=== PATIENT | female | born 1980 | race Caucasian/White ===

== ENCOUNTER 2019-08-15 08:08 | Inpatient (IN) | payer OTHER ==
[2019-08-15] MEDS ORDERED: ONDANSETRON 4 MG/2 ML VIAL IVP STA (08:26)
[2019-08-15] MEDS ORDERED: HYDROmorphone 0.5 MG/0.5 ML SYRINGE IVP STA (08:26)
[2019-08-15] MEDS ORDERED: SODIUM CHLORIDE 0.9% 1,000 ML IV ONE (08:26)
[2019-08-15 09:19] LABS: Basophils % (A) 0 %; Eosinophils # (A) 0.1 k/uL (0-0.7); Eosinophils % (A) 1 %; HCT 44.3 % (34.0-46.0); HGB 14.2 gm/dL (11.4-16.0); Lymphocytes # (A) 1.1 k/uL (1.0-4.8); Lymphocytes % (A) 12 %; MCV 87.5 fL (80.0-100.0); Mean Platelet Volume 7.2; Monocytes # (A) 0.5 k/uL (0-1.0); Monocytes % (A) 6 %; Neutrophils % (A) 79 %; Platelet Count 324 k/uL (150-450); RBC 5.06 m/uL (3.80-5.40); RDW 13.2 % (11.5-15.5); WBC 8.9 k/uL (3.8-10.6)
[2019-08-15 09:22] LABS: ALT 11 U/L (4-34); AST 23 U/L (14-36); African American GFR (CKD) >90 (>60 ml/min/1.73 sqM); Albumin 4.7 g/dL (3.5-5.0); Alkaline Phosphatase 78 U/L (38-126); Anion Gap 12 mmol/L; Blood Urea Nitrogen 11 mg/dL (7-17); Calcium 9.4 mg/dL (8.4-10.2); Carbon Dioxide 22 mmol/L (22-30); Chloride 105 mmol/L (98-107); Glucose 125 mg/dL (74-99); Non-African American GFR(CKD) >90 (>60 ml/min/1.73 sqM); Potassium 4.1 mmol/L (3.5-5.1); Sodium 139 mmol/L (137-145); Total Bilirubin 0.4 mg/dL (0.2-1.3); Total Protein 8.1 g/dL (6.3-8.2)
--- NOTE | 2019-08-15 09:23 | CT ---
EXAMINATION TYPE: CT orbits w con DATE OF EXAM: 08/15/2019 REFERENCE: None. HISTORY: Left periorbital swelling, left ocular pain HISTORY: Periorbital swelling REFERENCE: NONE CT DLP: 222 mGy Automated exposure control for dose reduction was used. TECHNIQUE: Helical acquisition through the abdomen and pelvis was obtained following the oral ingesti on of and following intravenous administration of 100 ml mL of Isovue 300. The data was reformatted i n axial, coronal and sagittal projections. FINDINGS: There is left-sided facial and periorbital swelling. The globes appear unremarkable. There is no intraconal or extraconal mass lesion. Visualized intracra nial structures appear normal. Visualized portions of the paranasal sinuses appear clear. The orbital margins are intact. IMPRESSION: DIFFUSE SOFT TISSUE SWELLING INVOLVING THE FOR HEAD AND LEFT PERIORBITAL REGION WITHOUT INVOLVEMENT O F THE ORBIT.
[2019-08-15] MEDS ORDERED: VANCOMYCIN IV PER PHARMACY 1 EACH MISC MISCELLANE PRN (09:42)
[2019-08-15] MEDS ORDERED: AMPICILLIN-SULBACTAM 3 GM in SODIUM CHLORIDE 0.9% 100 ML IVPB STA (09:50)
[2019-08-15] MEDS ORDERED: VANCOMYCIN 1,000 MG in SODIUM CHLORIDE 0.9% 250 ML IVPB STA (09:51)
--- NOTE | 2019-08-15 10:04 | ED ---
Skin/Abscess/FB HPI - General Chief complaint: Skin/Abscess/Foreign Body Stated complaint: Facial Swelling Time Seen by Provider: 08/15/19 08:16 Source: patient, RN notes reviewed Mode of arrival: ambulatory Limitations: no limitations - History of Present Illness Initial comments: 39-year-old female presents emergency Department with chief complaint of swelling to her left periorbital, forward region. Patient states that she popped a pimple on for Friday states and use her swelling started on antibiotics next day by PCP. Patient active.she also admits that she had Botox injections that night. Patient states she is unsure what this is from. Patient states that she was seen at [facility] last night was placed on Keflex. Patient states he attempted to do an aspiration. - Related Data Allergies Allergy/AdvReac Type Severity Reaction Status Date / Time ketorolac [From Toradol] AdvReac Swelling Verified 08/15/19 08:15 Review of Systems ROS Statement: Those systems with pertinent positive or pertinent negative responses have been documented in the HPI. ROS Other: All systems not noted in ROS Statement are negative. Past Medical History Additional Past Medical History / Comment(s): hypoglycemia, orthostatic hypotension History of Any Multi-Drug Resistant Organisms: None Reported Past Surgical History: Orthopedic Surgery, Tonsillectomy Past Psychological History: No Psychological Hx Reported Smoking Status: Never smoker Past Alcohol Use History: Occasional Past Drug Use History: None Reported General Exam Limitations: no limitations General appearance: alert, in no apparent distress Head exam: Present: atraumatic, normocephalic, normal inspection Eye exam: Present: PERRL, EOMI, periorbital swelling, periorbital tenderness, other (Swollen erythema noted on the forehead, periorbital region mild swelling on the right). Absent: normal appearance, scleral icterus, conjunctival injection ENT exam: Present: normal exam, normal oropharynx, mucous membranes moist Neck exam: Present: normal inspection. Absent: tenderness, meningismus, lympha denopathy Respiratory exam: Present: normal lung sounds bilaterally. Absent: respiratory distress, wheezes, rales, rhonchi, stridor Cardiovascular Exam: Present: regular rate, normal rhythm, normal heart sounds. Absent: systolic murmur, diastolic murmur, rubs, gallop, clicks Extremities exam: Present: normal inspection, full ROM, normal capillary refill. Absent: tenderness, pedal edema, joint swelling, calf tenderness Neurological exam: Present: alert, oriented X3, CN II-XII intact, reflexes normal. Absent: motor sensory deficit Course Vital Signs 08/15/19 08:10 Temperature 98.2 F Pulse Rate 75 Respiratory 16 Rate Blood Pressure 140/88 O2 Sat by Pulse 100 Oximetry Medical Decision Making - Medical Decision Making Labs and CT reviewed. Patient has evidence of diffuse cellulitis, edema. There is no evidence of orbital cellulitis. Patient has failed outpatient treatment will be started on Unasyn and vancomycin. - Lab Data Result diagrams: 08/15/19 08:47 08/15/19 08:47 Lab Results 08/15/19 08/15/19 08/15/19 Range/Units 08:47 08:47 08:47 WBC 8.9 (3.8-10.6) k/uL RBC 5.06 (3.80-5.40) m/uL Hgb 14.2 (11.4-16.0) gm/dL Hct 44.3 (34.0-46.0) % MCV 87.5 (80.0-100.0) fL MCH 28.0 (25.0-35.0) pg MCHC 32.0 (31.0-37.0) g/dL RDW 13.2 (11.5-15.5) % Plt Count 324 (150-450) k/uL Neutrophils % 79 % Lymphocytes % 12 % Monocytes % 6 % Eosinophils % 1 % Basophils % 0 % Neutrophils # 7.0 (1.3-7.7) k/uL Lymphocytes # 1.1 (1.0-4.8) k/uL Monocytes # 0.5 (0-1.0) k/uL Eosinophils # 0.1 (0-0.7) k/uL Basophils # 0.0 (0-0.2) k/uL Sodium 139 (137-145) mmol/L Potassium 4.1 (3.5-5.1) mmol/L Chloride 105 (98-107) mmol/L Carbon Dioxide 22 (22-30) mmol/L Anion Gap 12 mmol/L BUN 11 (7-17) mg/dL Creatinine 0.77 (0.52-1.04) mg/dL Est GFR (CKD-EPI)AfAm >90 (>60 ml/min/1.73 sqM) Est GFR (CKD-EPI)NonAf >90 (>60 ml/min/1.73 sqM) Glucose 125 H (74-99) mg/dL Plasma Lactic Acid Karson 1.9 (0.7-2.0) mmol/L Calcium 9.4 (8.4-10.2) mg/dL Total Bilirubin 0.4 (0.2-1.3) mg/dL AST 23 (14-36) U/L ALT 11 (4-34) U/L Alkaline Phosphatase 78 (38-126) U/L Total Protein 8.1 (6.3-8.2) g/dL Albumin 4.7 (3.5-5.0) g/dL Disposition Clinical Impression: Periorbital cellulitis, Facial cellulitis Disposition: ADMITTED IP TO THIS HOSP Condition: Fair Referrals: Darrell Hsu DO [Primary Care Provider] - 1-2 days
[2019-08-15] MEDS ORDERED: HYDROmorphone 1 MG/ML 1 ML SYRINGE IVP PRN (10:06)
[2019-08-15] MEDS ORDERED: NALOXONE 0.4 MG/ML 1 ML VIAL IV PRN (10:06)
[2019-08-15] MEDS ORDERED: MORPHINE SULFATE 4 MG/ML SYRINGE IVP PRN (15:07)
--- NOTE | 2019-08-15 15:53 | P.HPIM ---
History of Present Illness This is a pleasant 39 years old female with past medical history of orthostatic hypertension, she is a patient of Dr. Ramírez, presents with redness and swelling around her both eyes mainly on the left side. Patient states about 4 days ago she had a pimple at the corner of her left eyebrow, which she popped up, on the same day she got Subutex for cosmetic reasons for her for head and neck or the day she noticed slight swelling and redness and They the pimple came back so popped it again but the swelling and redness kept worsening, so she went to urgent care who prescribed Keflex and Bactrim after they did aspiration for her pimple, however yesterday and get more worse and she decided to come to the hospital She denies any blurred vision or diplopia, no nausea vomiting. No fever She denies smoking, alcohol or illicit drugs However she was taking Motrin 800 mg every 6 hours besides Tylenol and between Vitals are stable and patient is afebrile. Labs including CBC and BMP were unremarkable. She had CT of the head and orbit was showing diffuse soft tissue swelling involving the forehead and left periorbital region without involvement of the orbit In the emergency room patient was started on Unasyn and vancomycin. Review of Systems CONSTITUTIONAL: No fever, no malaise, no fatigue. HEENT: No recent visual problems or hearing problems. Denied any sore throat. CARDIOVASCULAR: No orthopnea, PND, no palpitations, no syncope. PULMONARY: No shortness of breath, no cough, no hemoptysis. GASTROINTESTINAL: No diarrhea, no nausea, no vomiting, no abdominal pain. Normoactive bowel sounds. NEUROLOGICAL: No headaches, no weakness, no numbness. HEMATOLOGICAL: Denies any bleeding or petechiae. GENITOURINARY: Denies any burning micturition, frequency, or urgency. MUSCULOSKELETAL/RHEUMATOLOGICAL: Denies any joint pain, swelling, or any muscle pain. ENDOCRINE: Denies any polyuria or polydipsia. Past Medical History Additional Past Medical History / Comment(s): hypoglycemia, orthostatic hypotension History of Any Multi-Drug Resistant Organisms: None Reported Past Surgical History: Orthopedic Surgery, Tonsillectomy Additional Past Anesthesia/Blood Transfusion Reaction / Comment(s): NEVER HAD Past Psychological History: No Psychological Hx Reported Smoking Status: Never smoker Past Alcohol Use History: Occasional Past Drug Use History: None Reported - Past Family History Father History Unknown: Yes Family Medical History: Diabetes Mellitus, Hypertension Mother History Unknown: Yes Family Medical History: Cancer Medications and Allergies Home Medications Medication Instructions Recorded Confirmed Type Cetirizine HCl [Zyrtec] 10 mg PO DAILY 08/15/19 08/15/19 History Etonogestrel [Nexplanon] 1 implant SQ [id number] 08/15/19 08/15/19 History Sulfamethox-Tmp 800-160Mg [Bactrim 1 tab PO BID 08/15/19 08/15/19 History DS 800-160 mg] Venlafaxine HCl [Effexor XR] 150 mg PO DAILY@1100 08/15/19 08/15/19 History Allergies Allergy/AdvReac Type Severity Reaction Status Date / Time ketorolac [From Toradol] AdvReac Swelling Verified 08/15/19 12:37 Physical Exam Vitals: Vital Signs Temp Pulse Pulse Resp BP BP Pulse Ox 08/15/19 12:08 98.4 F 74 18 136/87 08/15/19 10:47 82 18 139/90 98 08/15/19 08:10 98.2 F 75 16 140/88 100 Intake and Output 08/14/19 08/15/19 08/15/19 22:59 06:59 14:59 Other: Voiding Method Toilet # Voids 1 Weight 52.163 kg GENERAL: The patient is alert and oriented x3, not in any acute distress. Well developed, well nourished. HEENT: Pupils are round and equally reacting to light. EOMI. No scleral icterus. No conjunctival pallor. Normocephalic, atraumatic. No pharyngeal erythema. No thyromegaly. -Patient has swelling redness around her left eye with swollen left eyelids, swelling and draped for head and the lesser degree around her right eye, there is a small yellowish scab on the medial corner of the left eyebrow. No strabismus, no blurred vision CARDIOVASCULAR: S1 and S2 present. No murmurs, rubs, or gallops. PULMONARY: Chest is clear to auscultation, no wheezing or crackles. ABDOMEN: Soft, nontender, nondistended, normoactive bowel sounds. No palpable organomegaly. MUSCULOSKELETAL: No joint swelling or deformity. EXTREMITIES: No cyanosis, clubbing, or pedal edema. NEUROLOGICAL: Gross neurological examination did not reveal any focal deficits. SKIN: No rashes. No petechiae Results CBC & Chem 7: 08/15/19 08:47 08/15/19 08:47 Labs: Abnormal Lab Results - Last 24 Hours (Table) 08/15/19 Range/Units 08:47 Glucose 125 H (74-99) mg/dL Thrombosis Risk Factor Assmnt - Choose All That Apply Any of the Below Risk Factors Present?: Yes Each Factor Represents 1 point: Oral contraceptives or hormone replacement therapy Other Risk Factors: No Other congenital or acquired thrombophilia - If yes, enter type in comment: No Thrombosis Risk Factor Assessment Total Risk Factor Score: 1 Thrombosis Risk Factor Assessment Level: Low Risk Assessment and Plan Assessment: Pre-septal cellulitis Forehead and facial cellulitis Plan: This is a pleasant 59 years old female who presents with preseptal cellulitis, patient was started on Unasyn and vancomycin and emergency room, we'll continue with his antibiotics and we'll ask for infectious disease consult. Continue with gentle hydration. Pain management Labs and medication were reviewed.. Continue same treatment. Continue with symptomatic treatment. Resume home medication. Monitor lytes and vitals. DVT and GI prophylaxis. Further recommendations of the clinical course of the patient DVT prophylaxis: Subcutaneous heparin GI Prophylaxis: Pepcid Prognosis is guarded
[2019-08-15] MEDS: ONDANSETRON 4 MG/2 ML VIAL IVP PRN (16:13)
[2019-08-15] MEDS: HYDROmorphone 0.5 MG/0.5 ML SYRINGE IVP PRN ×3 (16:13→22:21)
[2019-08-15] MEDS: SODIUM CHLORIDE 0.9% 1,000 ML IV SCH (16:14)
[2019-08-15] MEDS: AMPICILLIN-SULBACTAM 3 GM in SODIUM CHLORIDE 0.9% 100 ML IVPB SCH (19:17)
[2019-08-15] MEDS: VANCOMYCIN 1,000 MG in SODIUM CHLORIDE 0.9% 250 ML IVPB SCH (20:15)
--- NOTE | 2019-08-16 01:02 | P.CONS ---
History of Present Illness - Reason for Consult Consult date: 08/15/19 facial cellulitis Requesting physician: Willian E Dallas - Chief Complaint left periorital pain and redness x 4 days - History of Present Illness Patient is a 39-year female who apparently has noticed a pimple on the left periorbital area last Friday that is about 4 days before presentation the hospital patient says she popped the pimple and subsequent noticed swelling and redness to the left periorbital area patient describing the pain to be throbbing almost 10 of 10 in severity did have some chills denies high-grade fever for the symptom she presented to the [facility] ER yesterday where the ER physician tried aspirated but did not get any cultures she was discharged home on oral Keflex however the patient did have worsening symptoms hence she presented to the [facility] ER on arrival to the ER patient did have a low-grade fever of 99.8 white count was normal as well as the kidney function patient did have a CT of the head and the orbits we did shows a left periorbital cellulitis without involvement of the orbit patient was started on Unasyn and vancomycin admitted to hospital infectious disease was consulted for further recommendation about antibiotic therapy. Review of Systems Positive point has been mentioned in HPI rest of the systems are negative Past Medical History Additional Past Medical History / Comment(s): hypoglycemia, orthostatic hypotension History of Any Multi-Drug Resistant Organisms: None Reported Past Surgical History: Orthopedic Surgery, Tonsillectomy Additional Past Anesthesia/Blood Transfusion Reaction / Comm: NEVER HAD Past Psychological History: No Psychological Hx Reported Smoking Status: Never smoker Past Alcohol Use History: Occasional Past Drug Use History: None Reported - Past Family History Father History Unknown: Yes Family Medical History: Diabetes Mellitus, Hypertension Mother History Unknown: Yes Family Medical History: Cancer Medications and Allergies Home Medications Medication Instructions Recorded Confirmed Type Cetirizine HCl [Zyrtec] 10 mg PO DAILY 08/15/19 08/15/19 History Etonogestrel [Nexplanon] 1 implant SQ [id number] 08/15/19 08/15/19 History Sulfamethox-Tmp 800-160Mg [Bactrim 1 tab PO BID 08/15/19 08/15/19 History DS 800-160 mg] Venlafaxine HCl [Effexor XR] 150 mg PO DAILY@1100 08/15/19 08/15/19 History Allergies Allergy/AdvReac Type Severity Reaction Status Date / Time ketorolac [From Toradol] AdvReac Swelling Verified 08/15/19 12:37 Physical Exam Vitals: Vital Signs Temp Pulse Pulse Resp BP BP Pulse Ox 08/15/19 12:08 98.4 F 74 18 136/87 08/15/19 10:47 82 18 139/90 98 08/15/19 08:10 98.2 F 75 16 140/88 100 Intake and Output 08/15/19 08/15/19 08/15/19 06:59 14:59 22:59 Other: Voiding Method Toilet # Voids 1 Weight 52.163 kg GENERAL DESCRIPTION: Middle-aged female lying in bed, no distress. No tachypnea or accessory muscle of respiration use. HEENT: Shows Pallor , no scleral icterus. Oral mucous membrane is dry. Left periorbital swelling redness and induration no drainage was noticed NECK: Trachea central, no thyromegaly. LUNGS: Unlabored breathing. Clear to auscultation anteriorly. No wheeze or crackle. HEART: S1, S2, regular rate and rhythm. ABDOMEN: Soft, no tenderness , guarding or rigidity EXTREMITIES: No edema of feet. SKIN: No rash, no masses palpable. NEUROLOGICAL: The patient is awake, alert, oriented x3, mood and affect normal. Results CBC & Chem 7: 08/15/19 08:47 08/15/19 08:47 Labs: Abnormal Lab Results - Last 24 Hours (Table) 08/15/19 Range/Units 08:47 Glucose 125 H (74-99) mg/dL Assessment and Plan Assessment: patient with left periorbital cellulitis that started as a pimple who the patient tried to pop likely pointing towards a possible staphylococcal infection with a question of MSSA versus community associated MRSA (1) Facial cellulitis Current Visit: Yes Status: Acute Code(s): L03.211 - CELLULITIS OF FACE SNOMED Code(s): 169136438 Plan: 1- RN has been advised to [place] the area of the redness and to obtain the cultures daily started to drain 2 vancomycin pharmacy to dose her with a target trough of 15 while watching her kidney function and Vanco trough closely.- We will follow on clinical condition and cultures to further adjust medication if needed Thank you for this consultation we will follow the patient along with you Time with Patient: Greater than 30
[2019-08-16] MEDS: ONDANSETRON 4 MG/2 ML VIAL IVP PRN ×2 (01:54→09:18)
[2019-08-16] MEDS: SODIUM CHLORIDE 0.9% 1,000 ML IV SCH ×2 (01:55→21:40)
[2019-08-16] MEDS: HYDROmorphone 0.5 MG/0.5 ML SYRINGE IVP PRN ×5 (01:55→21:40)
[2019-08-16] MEDS: AMPICILLIN-SULBACTAM 3 GM in SODIUM CHLORIDE 0.9% 100 ML IVPB SCH ×3 (03:51→19:51)
[2019-08-16] MEDS: VANCOMYCIN 1,000 MG in SODIUM CHLORIDE 0.9% 250 ML IVPB SCH ×2 (04:26→13:12)
[2019-08-16 07:45] LABS: African American GFR (CKD) >90 (>60 ml/min/1.73 sqM); Anion Gap 8 mmol/L; Blood Urea Nitrogen 6 mg/dL (7-17); Calcium 8.4 mg/dL (8.4-10.2); Carbon Dioxide 24 mmol/L (22-30); Chloride 105 mmol/L (98-107); Glucose 152 mg/dL (74-99); Non-African American GFR(CKD) >90 (>60 ml/min/1.73 sqM); Potassium 3.8 mmol/L (3.5-5.1); Sodium 137 mmol/L (137-145)
[2019-08-16] MEDS: FAMOTIDINE 20 MG/2 ML VIAL IV SCH ×2 (07:53→21:40)
[2019-08-16] MEDS: ENOXAPARIN 40 MG/0.4 ML SYRINGE SQ SCH (07:55)
[2019-08-16 08:51] LABS: C Reactive Protein 74.5 mg/L (<10.0)
--- NOTE | 2019-08-16 10:06 | P.PN ---
Subjective This is a pleasant 39 years old female with past medical history of orthostatic hypertension, she is a patient of Dr. Ramírez, presents with redness and swelling around her both eyes mainly on the left side. Patient states about 4 days ago she had a pimple at the corner of her left eyebrow, which she popped up, on the same day she got Subutex for cosmetic reasons for her for head and neck or the day she noticed slight swelling and redness and They the pimple came back so popped it again but the swelling and redness kept worsening, so she went to urgent care who prescribed Keflex and Bactrim after they did aspiration for her pimple, however yesterday and get more worse and she decided to come to the hospital She denies any blurred vision or diplopia, no nausea vomiting. No fever She denies smoking, alcohol or illicit drugs However she was taking Motrin 800 mg every 6 hours besides Tylenol and between Vitals are stable and patient is afebrile. Labs including CBC and BMP were unremarkable. She had CT of the head and orbit was showing diffuse soft tissue swelling involving the forehead and left periorbital region without involvement of the orbit In the emergency room patient was started on Unasyn and vancomycin. 08/16/2019 Patient erythema and swelling is regressing around both eyes now with this and oriented, although she has fluctuating a swelling on the top of her medial end of left eyebrow about 1 inch in diameter suspicious for an abscess, some call ENT for further evaluation. Patient still needed Dilaudid for pain management, oral medicine is added as well. Infectious disease on the case and she is on vancomycin and Unasyn, also she is in normal sinus 75 unit per hour Creatinine 0.6 Review of Systems CONSTITUTIONAL: No fever, no malaise, no fatigue. HEENT: No recent visual problems or hearing problems. Denied any sore throat. CARDIOVASCULAR: No orthopnea, PND, no palpitations, no syncope. PULMONARY: No shortness of breath, no cough, no hemoptysis. GASTROINTESTINAL: No diarrhea, no nausea, no vomiting, no abdominal pain. Normoactive bowel sounds. NEUROLOGICAL: No headaches, no weakness, no numbness. HEMATOLOGICAL: Denies any bleeding or petechiae. GENITOURINARY: Denies any burning micturition, frequency, or urgency. Active Medications Generic Name Dose Route Start Last Admin Trade Name Freq PRN Reason Stop Dose Admin Enoxaparin Sodium 40 mg 08/16/19 09:00 08/16/19 07:55 Lovenox SQ 40 mg DAILY KYMBERLY Administration Famotidine 20 mg 08/16/19 09:00 08/16/19 07:53 Pepcid IV 20 mg Q12HR KYMBERLY Administration Hydromorphone HCl 0.5 mg 08/15/19 10:06 08/16/19 07:55 Dilaudid IVP 0.5 mg Q3HR PRN Administration Moderate Pain Hydromorphone HCl 1 mg 08/15/19 10:06 08/15/19 10:46 Dilaudid IVP 1 mg Q3HR PRN Administration Severe Pain Ampicillin Sodium/Sulbactam 100 mls @ 200 mls/hr 08/15/19 20:00 08/16/19 03:51 Sodium 3 gm/ Sodium Chloride IVPB 200 mls/hr Q8H KYMBERLY Administration Vancomycin HCl 1,000 mg/ 250 mls @ 125 mls/hr 08/15/19 20:00 08/16/19 04:26 Sodium Chloride IVPB 125 mls/hr Q8H KYMBERLY Administration Sodium Chloride 1,000 mls @ 75 mls/hr 08/15/19 15:00 08/16/19 01:55 Saline 0.9% IV 75 mls/hr .[id number] KYMBERLY Administration Miscellaneous Information 0 each 08/16/19 19:00 Vancomycin Trough Due MISCELLANE 08/16/19 19:01 DIRECTED ONE Naloxone HCl 0.2 mg 08/15/19 10:06 Narcan IV Q2M PRN Opioid Reversal Ondansetron HCl 4 mg 08/15/19 10:06 08/16/19 09:18 Zofran IVP 4 mg Q8HR PRN Administration Nausea And Vomiting Objective - Vital Signs Vital signs: Vital Signs Temp 99.7 F H 08/16/19 08:19 Pulse 73 08/16/19 08:19 Resp 18 08/16/19 08:19 BP 129/81 08/16/19 08:19 Pulse Ox 98 08/16/19 08:19 Intake & Output 08/15/19 08/16/19 08/16/19 18:59 06:59 18:59 Intake Total 830 Balance 830 Weight 52.163 kg Intake: Oral 830 Other: Voiding Method Toilet Toilet # Voids 1 2 1 - Exam GENERAL: The patient is alert and oriented x3, not in any acute distress. Well developed, well nourished. HEENT: Pupils are round and equally reacting to light. EOMI. No scleral icterus. No conjunctival pallor. Normocephalic, atraumatic. No pharyngeal erythema. No thyromegaly. -Patient has swelling redness around her left eye with swollen left eyelids, swelling and draped for head and the lesser degree around her right eye, there is a about less than an inch fluctuant mass on the medial corner of the left eyebrow. No strabismus, no blurred vision. CARDIOVASCULAR: S1 and S2 present. No murmurs, rubs, or gallops. PULMONARY: Chest is clear to auscultation, no wheezing or crackles. ABDOMEN: Soft, nontender, nondistended, normoactive bowel sounds. No palpable organomegaly. MUSCULOSKELETAL: No joint swelling or deformity. EXTREMITIES: No cyanosis, clubbing, or pedal edema. NEUROLOGICAL: Gross neurological examination did not reveal any focal deficits. SKIN: No rashes. No petechiae - Labs CBC & Chem 7: 08/15/19 08:47 08/16/19 07:00 Labs: Abnormal Lab Results - Last 24 Hours (Table) 08/15/19 08/16/19 Range/Units 08:47 07:00 BUN 6 L (7-17) mg/dL Glucose 152 H (74-99) mg/dL C-Reactive Protein 35.8 H 74.5 H (<10.0) mg/L Assessment and Plan Assessment: Pre-septal cellulitis Forehead and facial cellulitis Possible forehead abscess Plan: This is a pleasant 59 years old female who presents with preseptal cellulitis, patient was started on Unasyn and vancomycin and emergency room, we'll continue with his antibiotics and we'll ask for infectious disease consult. Continue with gentle hydration. Pain management, Call ENT for consult Labs and medication were reviewed.. Continue same treatment. Continue with symptomatic treatment. Resume home medication. Monitor lytes and vitals. DVT and GI prophylaxis. Further recommendations of the clinical course of the patient DVT prophylaxis: Subcutaneous heparin GI Prophylaxis: Pepcid Prognosis is guarded.
[2019-08-16] MEDS ORDERED: DEXAMETHASONE SOD PHOSPHATE 10 MG/ML 1 ML VIAL IV STA (12:49)
[2019-08-16] MEDS: diphenhydrAMINE 25 MG CAP PO PRN ×2 (13:45→23:04)
--- NOTE | 2019-08-16 16:34 | US ---
EXAMINATION TYPE: US thyroid st tissue head/neck DATE OF EXAM: 08/16/2019 COMPARISON: CT orbits dated 08/15/2019 CLINICAL HISTORY: evaluation of edema to left forehead. TECHNIQUE/FINDINGS: Targeted grayscale and color ultrasound were performed of the patient's frontal r egion in the subcutaneous tissues at the area of swelling. At area of swelling clinically there is edematous tissue with increased vascularity to entire area. T here is a more focal hypoechoic 0.7 cm area with some increased through transmission and possible salazar ft to the skin surface on image 14/16. IMPRESSION: 7 mm fluid collection with possible sinus tract to the skin surface and surrounding edema tous hypervascular subcutaneous tissue. Findings may represent infected sebaceous cyst/epidermal incl usion, small abscess, or less likely cystic neoplasm.
[2019-08-16] MEDS: VENLAFAXINE HCL ER 150 MG CAP PO SCH (18:50)
[2019-08-16] MEDS ORDERED: VANCOMYCIN TROUGH DUE 1 EACH MISC MISCELLANE ONE (19:00)
--- NOTE | 2019-08-16 20:12 | PN ---
PROGRESS NOTE DATE OF SERVICE: 08/16/2019 REASON FOR FOLLOWUP: Left periorbital abscess and cellulitis. INTERVAL HISTORY: The patient is currently afebrile. Did have low fever this morning of 99.7. She still has some swelling and redness to the left periorbital area around the eyebrow. No drainage. No chest pain, shortness of breath or cough. No abdominal pain or diarrhea. PHYSICAL EXAMINATION: Blood pressure 108/73 with a pulse of 78, temperature 99.4. She is 98% on room air. General description is a middle-aged female lying in bed in no distress. HEENT EXAMINATION: Left periorbital area did have an area of induration, slightly fluctuant, but no drainage, and tender to touch. LUNGS: Unlabored breathing. Clear to auscultation anteriorly. HEART: S1, S2. Regular rate and rhythm. ABDOMEN: Soft. No tenderness. LABS: BUN of 6, creatinine 0.60. DIAGNOSTIC IMPRESSION AND PLAN: Patient with left periorbital cellulitis and question of an abscess formation. Awaiting ENT evaluation and drainage of the same. Culture should be obtained. Continue with vancomycin and adjust antibiotic further based on the culture report. Continue with supportive care. MMODL / IJN: [id number] /
[2019-08-16] MEDS: VANCOMYCIN 1,250 MG in SODIUM CHLORIDE 0.9% 250 ML IVPB SCH (20:44)
[2019-08-17] MEDS: AMPICILLIN-SULBACTAM 3 GM in SODIUM CHLORIDE 0.9% 100 ML IVPB SCH ×3 (03:58→19:45)
[2019-08-17] MEDS: HYDROmorphone 0.5 MG/0.5 ML SYRINGE IVP PRN ×3 (04:02→23:43)
[2019-08-17] MEDS: VANCOMYCIN 1,250 MG in SODIUM CHLORIDE 0.9% 250 ML IVPB SCH ×3 (05:09→20:26)
--- NOTE | 2019-08-17 08:32 | P.PN ---
Subjective This is a pleasant 39 years old female with past medical history of orthostatic hypertension, she is a patient of Dr. Ramírez, presents with redness and swelling around her both eyes mainly on the left side. Patient states about 4 days ago she had a pimple at the corner of her left eyebrow, which she popped up, on the same day she got Subutex for cosmetic reasons for her for head and neck or the day she noticed slight swelling and redness and They the pimple came back so popped it again but the swelling and redness kept worsening, so she went to urgent care who prescribed Keflex and Bactrim after they did aspiration for her pimple, however yesterday and get more worse and she decided to come to the hospital She denies any blurred vision or diplopia, no nausea vomiting. No fever She denies smoking, alcohol or illicit drugs However she was taking Motrin 800 mg every 6 hours besides Tylenol and between Vitals are stable and patient is afebrile. Labs including CBC and BMP were unremarkable. She had CT of the head and orbit was showing diffuse soft tissue swelling involving the forehead and left periorbital region without involvement of the orbit In the emergency room patient was started on Unasyn and vancomycin. 08/16/2019 Patient erythema and swelling is regressing around both eyes now with this and oriented, although she has fluctuating a swelling on the top of her medial end of left eyebrow about 1 inch in diameter suspicious for an abscess, some call ENT for further evaluation. Patient still needed Dilaudid for pain management, oral medicine is added as well. Infectious disease on the case and she is on vancomycin and Unasyn, also she is in normal sinus 75 unit per hour Creatinine 0.6 08/17/2019 There is significant decrease in the swelling, redness, tenderness of her forehead and both orbits. Both eyes are wide open today and close to normal, however there is no complete resolution. There is less than 1 cm swelling of the top of her medial end of left eyebrow, ultrasound yesterday showing 7 mm fluid collection with possible sinus tract to the skin findings may represent infected sebaceous cyst/epidermal inclusion, small abscesses or less likely cystic neoplasm ENT consult was placed yesterday and their response is still pending Patient remains on vancomycin, Unasyn, showed low-grade temperature yesterday 99.7 Review of Systems CONSTITUTIONAL: No fever, no malaise, no fatigue. HEENT: No recent visual problems or hearing problems. Denied any sore throat. CARDIOVASCULAR: No orthopnea, PND, no palpitations, no syncope. PULMONARY: No shortness of breath, no cough, no hemoptysis. GASTROINTESTINAL: No diarrhea, no nausea, no vomiting, no abdominal pain. Normoactive bowel sounds. NEUROLOGICAL: No headaches, no weakness, no numbness. HEMATOLOGICAL: Denies any bleeding or petechiae. GENITOURINARY: Denies any burning micturition, frequency, or urgency. \ Active Medications Generic Name Dose Route Start Last Admin Trade Name Freq PRN Reason Stop Dose Admin Diphenhydramine HCl 25 mg 08/16/19 13:24 08/16/19 23:04 Benadryl PO 25 mg Q6HR PRN Administration ITCHING/RASH Enoxaparin Sodium 40 mg 08/16/19 09:00 08/16/19 07:55 Lovenox SQ 40 mg DAILY KYMBERLY Administration Famotidine 20 mg 08/16/19 09:00 08/16/19 21:40 Pepcid IV 20 mg Q12HR KYMBERLY Administration Hydromorphone HCl 0.5 mg 08/15/19 10:06 08/17/19 04:02 Dilaudid IVP 0.5 mg Q3HR PRN Administration Moderate Pain Hydromorphone HCl 1 mg 08/15/19 10:06 08/15/19 10:46 Dilaudid IVP 1 mg Q3HR PRN Administration Severe Pain Ampicillin Sodium/Sulbactam 100 mls @ 200 mls/hr 08/15/19 20:00 08/17/19 03:5 8 Sodium 3 gm/ Sodium Chloride IVPB 200 mls/hr Q8H KYMBERLY Administration Sodium Chloride 1,000 mls @ 75 mls/hr 08/15/19 15:00 08/16/19 21:40 Saline 0.9% IV 75 mls/hr .[id number] KYMBERLY Administration Vancomycin HCl 1,250 mg/ 250 mls @ 83.333 mls/hr 08/16/19 20:00 08/17/19 05:0 9 Sodium Chloride IVPB 83.333 mls/hr Q8H KYMBERLY Administration Naloxone HCl 0.2 mg 08/15/19 10:06 Narcan IV Q2M PRN Opioid Reversal Ondansetron HCl 4 mg 08/15/19 10:06 08/16/19 09:18 Zofran IVP 4 mg Q8HR PRN Administration Nausea And Vomiting Venlafaxine HCl 150 mg 08/16/19 19:00 08/16/19 18:50 Effexor Xr PO 150 mg DAILY@1100 KYMBERLY Administration Objective - Vital Signs Vital signs: Vital Signs Temp 98.5 F 08/16/19 23:00 Pulse 76 08/16/19 23:00 Resp 16 08/16/19 23:00 BP 128/70 08/16/19 23:00 Pulse Ox 96 08/16/19 23:00 Intake & Output 08/16/19 08/17/19 08/17/19 18:59 06:59 18:59 Intake Total 600 1200 Balance 600 1200 Intake: Oral 600 1200 Other: Voiding Method Toilet # Voids 2 - Exam GENERAL: The patient is alert and oriented x3, not in any acute distress. Well developed, well nourished. HEENT: Pupils are round and equally reacting to light. EOMI. No scleral icterus. No conjunctival pallor. Normocephalic, atraumatic. No pharyngeal erythema. No thyromegaly. -Patient has swelling redness around her left eye with swollen left eyelids, swelling and draped for head and the lesser degree around her right eye, there is a about less than an inch fluctuant mass on the medial corner of the left eyebrow. No strabismus, no blurred vision. CARDIOVASCULAR: S1 and S2 present. No murmurs, rubs, or gallops. PULMONARY: Chest is clear to auscultation, no wheezing or crackles. ABDOMEN: Soft, nontender, nondistended, normoactive bowel sounds. No palpable organomegaly. MUSCULOSKELETAL: No joint swelling or deformity. EXTREMITIES: No cyanosis, clubbing, or pedal edema. NEUROLOGICAL: Gross neurological examination did not reveal any focal deficits. SKIN: No rashes. No petechiae - Labs CBC & Chem 7: 08/15/19 08:47 08/16/19 07:00 Labs: Abnormal Lab Results - Last 24 Hours (Table) 08/16/19 Range/Units 07:00 C-Reactive Protein 74.5 H (<10.0) mg/L Microbiology - Last 24 Hours (Table) 08/15/19 08:47 Blood Culture - Preliminary Blood No Growth after 24 hours Assessment and Plan Assessment: -Pre-septal cellulitis -Forehead and facial cellulitis -Possible forehead abscess. Ultrasound:7 mm fluid collection with possible sinus tract to the skin findings may represent infected sebaceous cyst/epidermal inclusion, small abscesses or less likely cystic neoplasm Plan: This is a pleasant 59 years old female who presents with preseptal cellulitis, patient was started on Unasyn and vancomycin Continue with gentle hydration. Pain management, Called ENT for consult as the response is pending Labs and medication were reviewed.. Continue same treatment. Continue with symptomatic treatment. Resume home medication. Monitor lytes and vitals. DVT and GI prophylaxis. Further recommendations of the clinical course of the patient DVT prophylaxis: Subcutaneous heparin GI Prophylaxis: Pepcid
[2019-08-17 09:01] LABS: African American GFR (CKD) >90 (>60 ml/min/1.73 sqM); Anion Gap 10 mmol/L; Blood Urea Nitrogen 9 mg/dL (7-17); Calcium 8.7 mg/dL (8.4-10.2); Carbon Dioxide 23 mmol/L (22-30); Chloride 107 mmol/L (98-107); Glucose 141 mg/dL (74-99); Non-African American GFR(CKD) >90 (>60 ml/min/1.73 sqM); Sodium 140 mmol/L (137-145)
[2019-08-17] MEDS: FAMOTIDINE 20 MG/2 ML VIAL IV SCH ×2 (11:17→20:20)
[2019-08-17] MEDS: ENOXAPARIN 40 MG/0.4 ML SYRINGE SQ SCH (11:18)
[2019-08-17] MEDS: VENLAFAXINE HCL ER 150 MG CAP PO SCH (11:18)
[2019-08-17] MEDS: SODIUM CHLORIDE 0.9% 1,000 ML IV SCH ×2 (11:20→20:18)
[2019-08-17] MEDS: DEXAMETHASONE SOD PHOSPHATE 10 MG/ML 1 ML VIAL IV SCH ×2 (14:00→20:19)
--- NOTE | 2019-08-17 23:24 | PN ---
PROGRESS NOTE DATE OF SERVICE: 08/17/2019 REASON FOR FOLLOWUP: Left periorbital cellulitis and abscess. INTERVAL HISTORY: The patient is currently afebrile. The left periorbital swelling and redness have improved. The patient denies having any chest pain or shortness of breath or cough. No nausea. No vomiting. No abdominal pain or diarrhea. PHYSICAL EXAMINATION: Blood pressure 115/71 with a pulse of 79, temperature 98.1. She is 97% on room air. General description is a middle-aged female lying in bed in no distress. HEENT EXAMINATION: The left periorbital swelling and redness have decreased. No drainage. LUNGS: Unlabored breathing. Clear to auscultation anteriorly. HEART: S1, S2. Regular rate and rhythm. ABDOMEN: Soft. No tenderness. LABS: BUN of 9, creatinine 0.63. Vancomycin level is 10.8. DIAGNOSTIC IMPRESSION AND PLAN: Patient with left periorbital cellulitis with an area of induration that has decreased in size. ENT recommending surgical drainage. Covered with vancomycin, Unasyn; to continue and finish therapy with oral antibiotic if the patient continues to improve. MMODL / IJN: [id number] /
[2019-08-17] MEDS: diphenhydrAMINE 25 MG CAP PO PRN (23:42)
--- NOTE | 2019-08-18 03:27 | CONS ---
CONSULTATION DATE OF CONSULTATION: 08/17/2019. REASON FOR CONSULTATION: Left periorbital cellulitis, possible abscess. HISTORY OF PRESENT ILLNESS: Patient is a very pleasant 39-year-old female who presented to [facility] Emergency Room on 08/15/2019 complaining of swelling over the left eye and left forehead. The history that the patient gives is that her symptoms began on Friday08/11/2019 shortly after receiving multiple injections of Botox to her forehead by another nurse at a so-called "Botox green party". The patient is an emergency room nurse at [employer] and she states that she had another nurse perform the multiple injections to her forehead. She subsequently noted that she developed a small pimple just over her left eye which she squeezed in attempt to drain it. She did not get any significant amount of fluid out of it, however, later the area became obviously infected and tender and began to swell. Since the Botox injections were not performed at any physician's office, the patient went to the emergency room at [facility]. After being examined, they attempted to aspirate the swollen area over her left eye. The patient states that she thinks they got a very small amount of purulent material, but no cultures were performed. The patient was discharged from the emergency room on Keflex capsules. Her symptoms continued to get worse, that is to say the swelling continued to get worse and the patient became concerned and saw her family doctor who advised her to continue on the Keflex. As the left eye became more swollen and painful and the swelling began to move over to the right side of the forehead and the right eye to the point that both eyes were almost completely swollen shut and at that point, the patient presented at [facility] for treatment. She states that both eyes were almost swollen completely shut and the left forehead was extremely tender. A CT of the head was performed to rule out a possible abscess and no abscess was found. However, there was extensive cellulitis noted in the left periorbital area and left forehead region suggesting periorbital cellulitis. The cellulitis did not extend into the orbit . The patient was admitted for definitive treatment and Infectious Disease was consulted. The patient was started on Unasyn and vancomycin. I was consulted on this patient on 08/16/2019. At that time, based upon the description that the nurse gave me, I advised them to give the patient a single 10 mg dose of dexamethasone intravenously and I stated that I would see her in the hospital on 08/17/2019. I advised the nurse that this should help reduce the swelling. By the next day the swelling had reduced significantly, as had the tenderness. At the time that I saw the patient in her room, she was in no acute distress or discomfort. PAST MEDICAL HISTORY: Past medical history reveals she has an allergy to KETOROLAC. Her home medications include Effexor, Zyrtec for seasonal allergies and control using an implant called Nexplanon. The patient states that she is a nonsmoker. There is no history of asthma, diabetes mellitus or hypertension. REVIEW OF SYSTEMS: The review of systems is completely noncontributory. PHYSICAL EXAMINATION: This patient is a very pleasant 39-year-old female who is alert and cooperative. She is in no acute distress or pain at this time. According to the nurses, the swelling has markedly decreased in the past 24 hours. HEENT: Patient is normocephalic. Tympanic membranes are normal. Middle ear spaces are free of any fluid or infection. Pupils equal, round, react to light and accommodation. Extraocular movements within normal limits. Intranasal examination reveals moderate septal deviation with bilateral compensatory hypertrophy of inferior turbinates and a moderate amount of thick clear mucus on the mucous membranes and draining down the posterior pharynx. Palpation of the neck is negative for any significant lymphadenopathy. Examination attention to the left periorbital area reveals that there is a moderate amount of swelling superior to the left orbit and slightly extending on to the left upper eyelid. There is slight ptosis, however. There does not appear to be any significant swelling on the right side of the forehead. Palpation of swollen area reveals that it is firm but does not at this time appear to be fluctuant. There is a scab over an area where there was a previous attempt to aspirate and there may at some point have been some drainage from this area. The patient has been advised not to attempt to squeeze this area as that will only spread any infection in the area. Cranial nerves 2 through 12 and the remainder of the head and neck exam are within normal limits. CHEST/CARDIOVASCULAR: Both lung reeves are clear to percussion and auscultation. The patient is in regular sinus rhythm. S1 and S2 are present and there is approximately a grade 1/4 to 1/2 systolic ejection murmur that is heard best in the 5th or 6th intercostal space on the right side of the chest. This murmur does not radiate superiorly or to the left side. The patient was advised by me that there was a murmur present which apparently she was not aware of was present. I advised her that she should be sure and make her family physician aware of this heart murmur. Most likely it is a so- called innocent heart murmur, but it may also represent mitral valve leakage. Peripheral pulses are bilaterally symmetric and within normal limits. ABDOMEN: There is no evident masses, megaly, tenderness. Abdomen is soft. The remainder of physical exam is unremarkable. ASSESSMENT: Left periorbital cellulitis without significant evidence of abscess. PLAN: An ultrasound was performed that showed a very minute 6 or 7 mm possible collection of fluid in the region of swelling. It is difficult to say whether this may represent an actual early abscess or phlegmon. At any rate, I do not think it would be appropriate to cause this patient to have a very noticeable scar on her forehead from an attempted incision and drainage of this area, which because of the small possible collection of fluid would necessitate a lot of so-called "fishing" around trying to find it. Usually collections of fluid/abscesses this small will reabsorb with appropriate high dose antibiotic treatment. Certainly evidence of this will be that the swelling continues to decrease over the left forehead. I am going to start the patient on a short course of intravenous steroids using dexamethasone. The regimen will be as follows: The first 24 hours will be dexamethasone 5 mg IV q.8 hours x 3 doses, followed by dexamethasone 2.5 mg IV q.8 hours x3 doses and then stop. Certainly, if the swelling has resolved to a significant degree, I would think that at that point, possibly on the patient could be discharged on an appropriate oral antibiotic which she should take for the next 10 days. I have advised patient not to squeeze the area and that she can apply either Neosporin or Polysporin or bacitracin ointment to the area where there is the crusting/scab noted. In addition to this, she can follow up with either her family physician or with an ENT specialist at [facility] [employer] where she works. I will see the patient again tomorrow just to see how the swelling is progressing. I want to take this opportunity to thank you for allowing me to assist you in the care of your patient. If I could be of any further assistance, please feel free to call my office. YULISA / NIKA: [id number] / MTDD
[2019-08-18] MEDS: AMPICILLIN-SULBACTAM 3 GM in SODIUM CHLORIDE 0.9% 100 ML IVPB SCH ×2 (03:47→12:21)
[2019-08-18] MEDS: DEXAMETHASONE SOD PHOSPHATE 10 MG/ML 1 ML VIAL IV SCH (04:35)
[2019-08-18] MEDS: VANCOMYCIN 1,250 MG in SODIUM CHLORIDE 0.9% 250 ML IVPB SCH ×3 (04:35→20:15)
[2019-08-18] MEDS: HYDROmorphone 0.5 MG/0.5 ML SYRINGE IVP PRN ×3 (04:39→22:28)
[2019-08-18 07:16] LABS: African American GFR (CKD) >90 (>60 ml/min/1.73 sqM); Anion Gap 6 mmol/L; Blood Urea Nitrogen 9 mg/dL (7-17); Calcium 8.5 mg/dL (8.4-10.2); Carbon Dioxide 25 mmol/L (22-30); Chloride 107 mmol/L (98-107); Glucose 118 mg/dL (74-99); Non-African American GFR(CKD) >90 (>60 ml/min/1.73 sqM); Potassium 4.3 mmol/L (3.5-5.1); Sodium 138 mmol/L (137-145)
[2019-08-18] MEDS: ENOXAPARIN 40 MG/0.4 ML SYRINGE SQ SCH (08:39)
[2019-08-18] MEDS: FAMOTIDINE 20 MG/2 ML VIAL IV SCH (08:39)
--- NOTE | 2019-08-18 08:58 | P.PN ---
Subjective This is a pleasant 39 years old female with past medical history of orthostatic hypertension, she is a patient of Dr. Ramírez, presents with redness and swelling around her both eyes mainly on the left side. Patient states about 4 days ago she had a pimple at the corner of her left eyebrow, which she popped up, on the same day she got Subutex for cosmetic reasons for her for head and neck or the day she noticed slight swelling and redness and They the pimple came back so popped it again but the swelling and redness kept worsening, so she went to urgent care who prescribed Keflex and Bactrim after they did aspiration for her pimple, however yesterday and get more worse and she decided to come to the hospital She denies any blurred vision or diplopia, no nausea vomiting. No fever She denies smoking, alcohol or illicit drugs However she was taking Motrin 800 mg every 6 hours besides Tylenol and between Vitals are stable and patient is afebrile. Labs including CBC and BMP were unremarkable. She had CT of the head and orbit was showing diffuse soft tissue swelling involving the forehead and left periorbital region without involvement of the orbit In the emergency room patient was started on Unasyn and vancomycin. 08/16/2019 Patient erythema and swelling is regressing around both eyes now with this and oriented, although she has fluctuating a swelling on the top of her medial end of left eyebrow about 1 inch in diameter suspicious for an abscess, some call ENT for further evaluation. Patient still needed Dilaudid for pain management, oral medicine is added as well. Infectious disease on the case and she is on vancomycin and Unasyn, also she is in normal sinus 75 unit per hour Creatinine 0.6 08/17/2019 There is significant decrease in the swelling, redness, tenderness of her forehead and both orbits. Both eyes are wide open today and close to normal, however there is no complete resolution. There is less than 1 cm swelling of the top of her medial end of left eyebrow, ultrasound yesterday showing 7 mm fluid collection with possible sinus tract to the skin findings may represent infected sebaceous cyst/epidermal inclusion, small abscesses or less likely cystic neoplasm ENT consult was placed yesterday and their response is still pending Patient remains on vancomycin, Unasyn, showed low-grade temperature yesterday 99.7 08/18/2019 Patient is improving with her erythema swelling and tenderness are significantly improved she can open eyes spontaneously. She still have small temporal on the top of her medial left eyebrow, ENT physician did not do aspiration for been a small lesion about 7 mm , and he did not want to do a scar into her face however he needs prescribed her steroids. Patient was instructed to follow up with ENT as an outpatient in 1 week after discharge and she agrees. She remains on IV antibiotics per ID team without going to switch to oral upon discharge. Vitals and creatinine are stable Objective - Vital Signs Vital signs: Vital Signs Temp 98.1 F 08/18/19 08:00 Pulse 67 08/18/19 08:00 Resp 16 08/18/19 08:00 BP 115/73 08/18/19 08:00 Pulse Ox 96 08/18/19 08:00 Intake & Output 08/17/19 08/18/19 08/18/19 18:59 06:59 18:59 Intake Total 2450 Balance 2450 Intake: Intake, IV Titration 1700 Amount Ampicillin-Sulbactam 3 gm 200 In Sodium Chloride 0.9% 100 ml @ 200 mls/hr IVPB Q8H KYMBERLY Rx#:[id number] Sodium Chloride 0.9% 1, 1000 000 ml @ 75 mls/hr IV . [id number] KYMBERLY Rx#:[id number] Vancomycin 1,250 mg In 500 Sodium Chloride 0.9% 250 ml @ 83.333 mls/hr IVPB Q8H KYMBERLY Rx#:[id number] Oral 750 Other: Voiding Method Toilet # Voids 4 1 - Exam GENERAL: The patient is alert and oriented x3, not in any acute distress. Well developed, well nourished. HEENT: Pupils are round and equally reacting to light. EOMI. No scleral icterus. No conjunctival pallor. Normocephalic, atraumatic. No pharyngeal erythema. No thyromegaly. -Patient has swelling redness around her left eye with swollen left eyelids, swelling and draped for head and the lesser degree around her right eye, there is a about less than an inch fluctuant mass on the medial corner of the left eyebrow. No strabismus, no blurred vision. CARDIOVASCULAR: S1 and S2 present. No murmurs, rubs, or gallops. PULMONARY: Chest is clear to auscultation, no wheezing or crackles. ABDOMEN: Soft, nontender, nondistended, normoactive bowel sounds. No palpable organomegaly. MUSCULOSKELETAL: No joint swelling or deformity. EXTREMITIES: No cyanosis, clubbing, or pedal edema. NEUROLOGICAL: Gross neurological examination did not reveal any focal deficits. SKIN: No rashes. No petechiae - Labs CBC & Chem 7: 08/15/19 08:47 08/18/19 06:23 Labs: Abnormal Lab Results - Last 24 Hours (Table) 08/17/19 08/18/19 Range/Units 08:13 06:23 Glucose 141 H 118 H (74-99) mg/dL Microbiology - Last 24 Hours (Table) 08/15/19 08:47 Blood Culture - Preliminary Blood No Growth after 48 hours Assessment and Plan Assessment: -Pre-septal cellulitis -Forehead and facial cellulitis -Possible forehead abscess. Ultrasound:7 mm fluid collection with possible sinus tract to the skin findings may represent infected sebaceous cyst/epidermal inclusion, small abscesses or less likely cystic neoplasm Plan: This is a pleasant 59 years old female who presents with preseptal cellulitis, patient was started on Unasyn and vancomycin Continue with gentle hydration. Pain management ENT consult, follow-up ENT as an outpatient Labs and medication were reviewed.. Continue same treatment. Continue with symptomatic treatment. Resume home medication. Monitor lytes and vitals. DVT and GI prophylaxis. Further recommendations of the clinical course of the patient DVT prophylaxis: Subcutaneous heparin GI Prophylaxis: Pepcid
[2019-08-18] MEDS: VENLAFAXINE HCL ER 150 MG CAP PO SCH (12:21)
[2019-08-18] MEDS: SODIUM CHLORIDE 0.9% 1,000 ML IV SCH ×2 (12:25→18:23)
[2019-08-18] MEDS: DEXAMETHASONE SOD PHOSPHATE 4 MG/ML 1 ML VIAL IV SCH ×2 (12:51→21:16)
--- NOTE | 2019-08-18 18:16 | PN ---
PROGRESS NOTE DATE OF SERVICE: 08/18/2019 REASON FOR FOLLOWUP: Left orbital abscess and cellulitis. INTERVAL HISTORY: The patient is currently afebrile. Patient is breathing comfortably. Denies having any chest pain or cough. The left periorbital swelling and redness has improved. but no drainage. No abdominal pain. No diarrhea. PHYSICAL EXAMINATION: Blood pressure 120/73 with a pulse of 73, temperature 98.8. She is 100% on room air. General description is a middle-aged female lying in bed in no distress. HEENT examination: Left periorbital area swelling, redness, induration decreased. No drainage. LUNGS unlabored breathing. Clear to auscultation anteriorly. HEART S1, S2. Regular rate and rhythm. ABDOMEN: Soft, no tenderness. LABS: Creatinine 0.60. DIAGNOSTIC IMPRESSION AND PLAN: Patient with left periorbital cellulitis. Overall clinical improvement. Continue with vancomycin. Finish therapy with oral Bactrim and Keflex and close outpatient followup. MMODL / IJN: [id number] /
[2019-08-18] MEDS ORDERED: VANCOMYCIN TROUGH DUE 1 EACH MISC MISCELLANE ONE (19:00)
[2019-08-18] MEDS ORDERED: POLYETHYLENE GLYCOL 3350 17 GM POWD.PACK PO SCH (21:00)
[2019-08-18] MEDS: FAMOTIDINE 20 MG TAB PO SCH (21:23)
[2019-08-18] MEDS: diphenhydrAMINE 25 MG CAP PO PRN (22:28)
[2019-08-19 00:09] VITALS: BP 124/79; PULSE 64; RESP 18; TEMP 98.7
--- NOTE | 2019-08-19 01:57 | PN ---
PROGRESS NOTE DATE OF THE PROGRESS NOTE: 08/18/2019. SUBJECTIVE: Vital signs stayed stable. The patient is afebrile. The patient states that she feels much better and has only slight discomfort over the left eye. The swelling has continued to markedly decrease as well as the erythema has decreased. The patient states that she is now able to almost completely open her left eye as there is very little swelling of her upper left lid. She is currently still on antibiotics and also on the dexamethasone regimen. OBJECTIVE: HEENT: Patient is normocephalic. Tympanic membranes are normal. Palpation of the area reveals patient has approximately less than a 5 mm area of slight swelling which is still somewhat firm and does not appear to be fluctuant or tender. There is no overlying erythema. She has very little soft tissue edema of the upper left eyelid near the corner of the left eye . There is no swelling over the right forehead and both eyelids are essentially open. That is to say the patient is able to open both eyes without any difficulty. Pupils equal, round, react to light and accommodation. Extraocular movements within normal limits. There is no neck adenopathy or masses. The remainder of the head neck exam, chest/ cardiovascular exam and physical exam essentially unremarkable. IMPRESSION: Resolving left periorbital cellulitis/abscess? PLAN: Advised to continue for one more day of the intravenous antibiotics and complete the steroid regimen. From an ENT standpoint, the patient can be discharged to home tomorrow on , 08/19/2019, on whatever antibiotic that the infectious disease service feels is appropriate. I have advised the patient followup with family physician and I do not need to see her on a followup in my office. All of her questions were answered. MMODL / IJN: [id number] / CHLOE
[2019-08-19] MEDS: DEXAMETHASONE SOD PHOSPHATE 4 MG/ML 1 ML VIAL IV SCH (04:25)
[2019-08-19] MEDS: VANCOMYCIN 1,250 MG in SODIUM CHLORIDE 0.9% 250 ML IVPB SCH (04:25)
[2019-08-19] MEDS ORDERED: ACETAMINOPHEN TAB 325 MG TAB PO PRN (08:21)
--- NOTE | 2019-08-19 08:21 | P.DS ---
Providers Date of admission: 08/15/19 09:50 Attending physician: Willian Haynes MD Consults: 08/15/19 09:47 Consult Physician Urgent Consulting Provider: Matthieu Garcia Consult Reason/Comments: pre-septal cellulitis Do you want consulting provider notified?: Yes 08/16/19 10:03 Consult Physician Urgent Consulting Provider: Ang Lee Consult Reason/Comments: Preseptal cellulitis with possible abscess Do you want consulting provider notified?: Yes Primary care physician: Darrell Hsu DO Hospital Course: Diagnoses: -Pre-septal cellulitis -Forehead and facial cellulitis -Possible forehead abscess. Ultrasound:7 mm fluid collection with possible sinus tract to the skin findings may represent infected sebaceous cyst/epidermal inclusion, small abscesses or less likely cystic neoplasm Hospital course: This is a pleasant 39 years old female with past medical history of orthostatic hypertension, she is a patient of Dr. Ramírez, presents with redness and swelling around her both eyes mainly on the left side. Patient states about 4 days duration she had a pimple at the corner of her left eyebrow, which she popped up, patient was treated as an outpatient with oral antibiotics like Keflex and Bactrim but her illness progress so she came to the emergency room. CT of the head and orbit was showing diffuse soft tissue swelling involving the forehead and left periorbital region without involvement of the orbit, patient was treated with Unasyn and vancomycin. Infectious disease specialist and ENT specialist evaluated the patient. Later on Unasyn was discontinued and kept on IV vancomycin. Her for her cellulitis and periorbital cellulitis improved significantly however there was less than 1 cm swelling of the top of her medial end of left eyebrow, ultrasound showing 7 mm fluid collection with possible sinus tract to the skin findings may represent infected sebaceous cyst/epidermal inclusion, small abscesses or less likely cystic neoplasm. ENT physician did not do aspiration for been a small lesion about 7 mm , and he did not want to do a scar into her face however he needs prescribed her steroids. Patient was instructed to follow up with ENT as an outpatient in 1 week after discharge and she agrees. Eventually patient cellulitis improved significantly and patient can open eyes spontaneously mostly with no vision changes. Patient felt she can go home Patient was cleared for discharge by ENT and ID team services. Patient will be discharged on oral antibiotics as per ID team, see orders (Bactrim and Keflex for 7 days) Problems and management plan were discussed with the patient and he verbalized understanding and acceptance Patient was found stable and can be discharged home however he needs follow-up as an outpatient. Patient was instructed to follow up with PCP Dr. Ramírez within one week and patient agrees. Patient also was instructed to follow up with ENT specialist as an onset in one week and she agrees. Gen: patient is a AAOx3, no distress CVS: S1-S2, RRR, no murmur Lungs: B/L CTA, no wheezing Abdomen: soft, no distention, no tenderness, positive bowel sounds Extremity: no leg edema or induration Time spent more than 35 minutes Patient Condition at Discharge: Fair Plan - Discharge Summary New Discharge Prescriptions: New Cephalexin [Keflex] 500 mg PO Q8HR 7 Days #21 cap Acetaminophen Tab [Tylenol] 650 mg PO Q6H #20 tab Continue Venlafaxine HCl [Effexor XR] 150 mg PO DAILY@1100 Etonogestrel [Nexplanon] 1 implant SQ [id number] Cetirizine HCl [Zyrtec] 10 mg PO DAILY Sulfamethox-Tmp 800-160Mg [Bactrim DS 800-160 mg] 1 tab PO BID 7 Days #14 tab Discharge Medication List Cetirizine HCl [Zyrtec] 10 mg PO DAILY 08/15/19 [History] Etonogestrel [Nexplanon] 1 implant SQ [id number] 08/15/19 [History] Venlafaxine HCl [Effexor XR] 150 mg PO DAILY@1100 08/15/19 [History] Acetaminophen Tab [Tylenol] 650 mg PO Q6H #20 tab 08/19/19 [Rx] Cephalexin [Keflex] 500 mg PO Q8HR 7 Days #21 cap 08/19/19 [Rx] Sulfamethox-Tmp 800-160Mg [Bactrim DS 800-160 mg] 1 tab PO BID 7 Days #14 tab 08/19/19 [Rx] Follow up Appointment(s)/Referral(s): Darrell Hsu DO [Primary Care Provider] - 1-2 days Ang Lee MD [STAFF PHYSICIAN] - 1 Week Activity/Diet/Wound Care/Special Instructions: Please call and make an appt. within 2-[address] primary [address]. It is important that you attend this appointment to be sure you are improving. At this time, it is not felt that you need to follow up with an ENT DR., per Dr. Lee. Finish your Bactrim and Keflex antibiotics you have at home and finish the dose completely. Please report to your DR any worsening symptoms, concerning symptoms, fever or chills. Discharge Disposition: HOME SELF-CARE
[2019-08-19] MEDS: ENOXAPARIN 40 MG/0.4 ML SYRINGE SQ SCH (08:23)
[2019-08-19] MEDS: FAMOTIDINE 20 MG TAB PO SCH (08:23)
[2019-08-20] MEDS ORDERED: VANCOMYCIN TROUGH DUE 1 EACH MISC MISCELLANE ONE (11:00)
== END 2019-08-19 08:50 | disposition home or self-care (01) | DRG 603 ==
LOC: EC 08:08 → 6PED 09:50
PROVIDERS: ADMIT Internal Medicine; ATTEND Internal Medicine
DX: L03.213 Periorbital cellulitis (principal); L02.01 Cutaneous abscess of face; L03.211 Cellulitis of face; J30.2 Other seasonal allergic rhinitis; Z11.59 Encounter for screening for other viral diseases; Z88.6 Allergy status to analgesic agent; Z79.899 Other long term (current) drug therapy; Z82.49 Family history of ischemic heart disease and other diseases of the circulatory system; Z83.3 Family history of diabetes mellitus
CPT/HCPCS: 36415; 70481; 76536; 80048; 80053; 80202; 83605; 84703; 85025; 86140; 87040; 87635; 96361; 96365; 96375; 96376; 99285

== ENCOUNTER 2020-04-21 15:04 | Emergency (ER) | payer BC, OTHER ==
[2020-04-21] MEDS ORDERED: SODIUM CHLORIDE 0.9% 1,000 ML IV STA (15:58)
[2020-04-21] MEDS ORDERED: ONDANSETRON 4 MG/2 ML VIAL IVP STA (15:58)
--- NOTE | 2020-04-21 16:47 | US ---
EXAMINATION TYPE: US abdomen complete DATE OF EXAM: 04/21/2020 COMPARISON: NONE CLINICAL HISTORY: Severe constipation, abdominal pain-14 wks preg. EXAM MEASUREMENTS: Liver Length: 12.8 cm Gallbladder Wall: 0.2 cm CBD: 0.7 cm Spleen: 10.9 cm Right Kidney: 9.4 x 3.9 x 4.1 cm Left Kidney: 9.7 x 5.9 x 5.0 cm Pancreas: wnl Liver: wnl Gallbladder: No stones seen Evidence for sonographic Reid's sign: No CBD: measures 0.7 cm, upper limits of normal Spleen: wnl Right Kidney: No hydronephrosis or masses seen Left Kidney: No hydronephrosis or masses seen Upper IVC: wnl Abd Aorta: wnl IMPRESSION: Negative exam. No gallstones or dilated ducts. The hepatic bile ducts appear normal.
[2020-04-21 16:54] LABS: Basophils # (A) 0.1 k/uL (0-0.2); Basophils % (A) 1 %; Eosinophils # (A) 0.1 k/uL (0-0.7); Eosinophils % (A) 1 %; HCT 39.7 % (34.0-46.0); Lymphocytes # (A) 1.2 k/uL (1.0-4.8); Lymphocytes % (A) 12 %; MCH 30.4 pg (25.0-35.0); MCHC 35.4 g/dL (31.0-37.0); MCV 85.9 fL (80.0-100.0); Mean Platelet Volume 7.3; Monocytes # (A) 0.4 k/uL (0-1.0); Monocytes % (A) 4 %; Neutrophils # (A) 8.1 k/uL (1.3-7.7); Neutrophils % (A) 82 %; Platelet Count 271 k/uL (150-450); RBC 4.62 m/uL (3.80-5.40); RDW 13.1 % (11.5-15.5); WBC 9.9 k/uL (3.8-10.6)
--- NOTE | 2020-04-21 16:56 | US ---
EXAMINATION TYPE: US OB limited DATE OF EXAM: 04/21/2020 COMPARISON: NONE CLINICAL HISTORY: tones. EXAM PERFORMED: Heart tones only SURVEY HEART RATE: 152 bpm RHYTHM: Normal Impression Limited exam shows heart rate of 152. No complicating process seen. IMPRESSION: Heart rate 152 bpm.
[2020-04-21 17:03] LABS: ALT 11 U/L (4-34); AST 24 U/L (14-36); African American GFR (CKD) >90 (>60 ml/min/1.73 sqM); Albumin 3.9 g/dL (3.5-5.0); Alkaline Phosphatase 44 U/L (38-126); Anion Gap 9 mmol/L; Blood Urea Nitrogen 7 mg/dL (7-17); Calcium 9.5 mg/dL (8.4-10.2); Carbon Dioxide 21 mmol/L (22-30); Chloride 106 mmol/L (98-107); Glucose 97 mg/dL (74-99); Non-African American GFR(CKD) >90 (>60 ml/min/1.73 sqM); Potassium 4.1 mmol/L (3.5-5.1); Sodium 136 mmol/L (137-145); Total Bilirubin 0.4 mg/dL (0.2-1.3); Total Protein 7.3 g/dL (6.3-8.2)
[2020-04-21 17:07] LABS: Appearance,Urine Clear (Clear); Bilirubin,Urine Negative (Negative); Blood,Urine Trace (Negative); Calcium Oxalate Crystals,Urine Occasional /hpf; Color,Urine Yellow; Glucose,Urine (UA) Negative (Negative); Ketones,Urine Negative (Negative); Leukocyte Esterase,Urine Negative (Negative); Mucus,Urine Moderate /hpf; Nitrite,Urine Negative (Negative); PH, Urine 5.5 (5.0-8.0); Protein,Urine Trace (Negative); RBC,Urine 1 /hpf (0-5); Specific Gravity,Urine 1.022 (1.001-1.035); Squamous Epithelial Cell,Urine <1 /hpf (0-4); Urobilinogen,Urine <2.0 mg/dL (<2.0); WBC,Urine 1 /hpf (0-5)
--- NOTE | 2020-04-21 17:13 | ED ---
Abdominal Pain HPI - General Chief Complaint: Abdominal Pain Stated Complaint: Abd Pain, 14 wks Preg Time Seen by Provider: 04/21/20 15:29 Source: patient Mode of arrival: ambulatory Limitations: no limitations - History of Present Illness Initial Comments: Patient is a 40-year-old female presenting to the emergency Department with complaints of chronic constipation as well as nausea and vomiting. Patient is currently 14 weeks , . Patient states she has been dealing with constipation for about 3 months now. Patient states she thought she had under control but the last few months it has been worse. Patient states she normally goes 1-2 times daily but recently has been going anywhere from every 4-5 days. She states she does try Dulcolax and MiraLAX occasionally and does have a small bowel movement when she takes these but then goes back to her normal period she's been having some abdominal bloating, increase in nausea and vomiting as well. She has been having to disimpact herself on several occasions. Patient states she has been nauseous throughout this entire but is unsure if it's related to the or the constipation. Patient also stopped drinking coffee when she became . Patient states she followed up with her [employer] APPLICATOR who referred her back to her PCP who sent her in to the ER for evaluation to rule out possible obstruction. She denies history of any abdominal surgeries. He states she has been able to eat and drink. She denies any diarrhea, she has been passing gas. She has no further complaints at this time. Upon arrival to the ER, her vital signs are stable. - Related Data Home Medications Medication Instructions Recorded Confirmed Acetaminophen Tab [Tylenol Tab] 1,000 mg PO Q6HR PRN 04/21/20 04/21/20 Docusate [Colace] 100 mg PO DAILY 04/21/20 04/21/20 Glycerin Adult Suppository 1 suppositor RECTAL DAILY PRN 04/21/20 04/21/20 Magnesium Hydroxide [Milk of 2,400 mg PO DAILY PRN 04/21/20 04/21/20 Magnesia] Ondansetron [Zofran] 8 mg PO Q8H PRN 04/21/20 04/21/20 Tvs-Wvzz-Hraav Acid 1 cap PO DAILY 04/21/20 04/21/20 [-U Capsule (formulary)] Allergies Allergy/AdvReac Type Severity Reaction Status Date / Time ketorolac [From Toradol] AdvReac Swelling Verified 04/21/20 16:40 Review of Systems ROS Statement: Those systems with pertinent positive or pertinent negative responses have been documented in the HPI. ROS Other: All systems not noted in ROS Statement are negative. Past Medical History Additional Past Medical History / Comment(s): hypoglycemia, orthostatic hypotension History of Any Multi-Drug Resistant Organisms: None Reported Past Surgical History: Orthopedic Surgery, Tonsillectomy Additional Past Anesthesia/Blood Transfusion Reaction / Comment(s): NEVER HAD Past Psychological History: No Psychological Hx Reported Smoking Status: Never smoker Past Alcohol Use History: Occasional Past Drug Use History: None Reported - Past Family History Father History Unknown: Yes Family Medical History: Diabetes Mellitus, Hypertension Mother History Unknown: Yes Family Medical History: Cancer General Exam - General Exam Comments Initial Comments: GENERAL: Patient is well-developed and well-nourished. Patient is nontoxic and in no acute distress. HEAD: Atraumatic, normocephalic. EYES: Pupils equal round and reactive to light, extraocular movements intact, sclera anicteric, conjunctiva are normal. Eyelids were unremarkable. ENT: TMs normal, nares patent, oropharynx clear without exudates. Moist mucous membranes. NECK: Normal range of motion, supple without lymphadenopathy or JVD. LUNGS: Unlabored respirations. Breath sounds clear to auscultation bilaterally and equal. No wheezes rales or rhonchi. HEART: Regular rate and rhythm without murmurs, rubs or gallops. ABDOMEN: Soft, nontender, normoactive bowel sounds. No guarding, no rebound. No masses appreciated. Patient currently 14 weeks , seems mildly bloated/vs belly. : Deferred MUSCULOSKELETAL: Normal extremities with adequate strength and normal range of motion, no pitting or edema. No clubbing or cyanosis. NEUROLOGICAL: Patient is alert and oriented x 3. Motor and sensory are also intact. Cranial nerves II through XII grossly intact. Symmetrical smile. Normal speech, normal gait. PSYCH: Normal mood, normal affect. SKIN: Warm, Dry, normal turgor, no rashes or lesions noted. Limitations: no limitations Course Vital Signs 04/21/20 04/21/20 04/21/20 15:14 16:43 17:26 Temperature 98.5 F 97.6 F Pulse Rate 97 89 80 Respiratory 18 17 18 Rate Blood Pressure 134/79 120/83 121/76 O2 Sat by Pulse 100 99 100 Oximetry Medical Decision Making - Medical Decision Making Patient is a 40-year-old female here for chronic constipation, increase in nausea and vomiting for the past week. She's been dealing with constipation for a few months now. She is currently 14 weeks , . She denies any specific areas of abdominal pain, describes it as pressure and bloating. She denies any vaginal bleeding. I her PCP to rule out possible obstruction. She denies history of any abdominal surgeries. Patient's lab work is unremarkable, lactic acid is normal at 1.2. Abdominal ultrasound shows no abnormalities at this time, heart tones are normal at 152. I discussed these findings with the patient. I recommended MiraLAX daily for regularity, couple of coffee in the morning, patient states she did stop this at the beginning of her , this could be contributing to her constipation. She is drink plenty of water as well. She can follow-up with her [employer] APPLICATOR or PCP if symptoms persist. Return parameters were discussed with the patient she verbalized understanding. Case discussed with Dr. Contreras. - Lab Data Result diagrams: 04/21/20 16:33 04/21/20 16:33 Lab Results 04/21/20 04/21/20 04/21/20 Range/Units 16:33 16:33 16:33 WBC 9.9 (3.8-10.6) k/uL RBC 4.62 (3.80-5.40) m/uL Hgb 14.0 (11.4-16.0) gm/dL Hct 39.7 (34.0-46.0) % MCV 85.9 (80.0-100.0) fL MCH 30.4 (25.0-35.0) pg MCHC 35.4 (31.0-37.0) g/dL RDW 13.1 (11.5-15.5) % Plt Count 271 (150-450) k/uL MPV 7.3 Neutrophils % 82 % Lymphocytes % 12 % Monocytes % 4 % Eosinophils % 1 % Basophils % 1 % Neutrophils # 8.1 H (1.3-7.7) k/uL Lymphocytes # 1.2 (1.0-4.8) k/uL Monocytes # 0.4 (0-1.0) k/uL Eosinophils # 0.1 (0-0.7) k/uL Basophils # 0.1 (0-0.2) k/uL Sodium 136 L (137-145) mmol/L Potassium 4.1 (3.5-5.1) mmol/L Chloride 106 (98-107) mmol/L Carbon Dioxide 21 L (22-30) mmol/L Anion Gap 9 mmol/L BUN 7 (7-17) mg/dL Creatinine 0.54 (0.52-1.04) mg/dL Est GFR (CKD-EPI)AfAm >90 (>60 ml/min/1.73 sqM) Est GFR (CKD-EPI)NonAf >90 (>60 ml/min/1.73 sqM) Glucose 97 (74-99) mg/dL Plasma Lactic Acid Karson 1.2 (0.7-2.0) mmol/L Calcium 9.5 (8.4-10.2) mg/dL Total Bilirubin 0.4 (0.2-1.3) mg/dL AST 24 (14-36) U/L ALT 11 (4-34) U/L Alkaline Phosphatase 44 (38-126) U/L Total Protein 7.3 (6.3-8.2) g/dL Albumin 3.9 (3.5-5.0) g/dL Urine Color Urine Appearance (Clear) Urine pH (5.0-8.0) Ur Specific [place] (1.001-1.035) Urine Protein (Negative) Urine Glucose (UA) (Negative) Urine Ketones (Negative) Urine Blood (Negative) Urine Nitrite (Negative) Urine Bilirubin (Negative) Urine Urobilinogen (<2.0) mg/dL Ur Leukocyte Esterase (Negative) Urine RBC (0-5) /hpf Urine WBC (0-5) /hpf Ur Squamous Epith Cells (0-4) /hpf Calcium Oxalate Crystal (None) /hpf Urine Mucus (None) /hpf 04/21/20 Range/Units 16:46 WBC (3.8-10.6) k/uL RBC (3.80-5.40) m/uL Hgb (11.4-16.0) gm/dL Hct (34.0-46.0) % MCV (80.0-100.0) fL MCH (25.0-35.0) pg MCHC (31.0-37.0) g/dL RDW (11.5-15.5) % Plt Count (150-450) k/uL MPV Neutrophils % % Lymphocytes % % Monocytes % % Eosinophils % % Basophils % % Neutrophils # (1.3-7.7) k/uL Lymphocytes # (1.0-4.8) k/uL Monocytes # (0-1.0) k/uL Eosinophils # (0-0.7) k/uL Basophils # (0-0.2) k/uL Sodium (137-145) mmol/L Potassium (3.5-5.1) mmol/L Chloride (98-107) mmol/L Carbon Dioxide (22-30) mmol/L Anion Gap mmol/L BUN (7-17) mg/dL Creatinine (0.52-1.04) mg/dL Est GFR (CKD-EPI)AfAm (>60 ml/min/1.73 sqM) Est GFR (CKD-EPI)NonAf (>60 ml/min/1.73 sqM) Glucose (74-99) mg/dL Plasma Lactic Acid Karson (0.7-2.0) mmol/L Calcium (8.4-10.2) mg/dL Total Bilirubin (0.2-1.3) mg/dL AST (14-36) U/L ALT (4-34) U/L Alkaline Phosphatase (38-126) U/L Total Protein (6.3-8.2) g/dL Albumin (3.5-5.0) g/dL Urine Color Yellow Urine Appearance Clear (Clear) Urine pH 5.5 (5.0-8.0) Ur Specific [place] 1.022 (1.001-1.035) Urine Protein Trace H (Negative) Urine Glucose (UA) Negative (Negative) Urine Ketones Negative (Negative) Urine Blood Trace H (Negative) Urine Nitrite Negative (Negative) Urine Bilirubin Negative (Negative) Urine Urobilinogen <2.0 (<2.0) mg/dL Ur Leukocyte Esterase Negative (Negative) Urine RBC 1 (0-5) /hpf Urine WBC 1 (0-5) /hpf Ur Squamous Epith Cells <1 (0-4) /hpf Calcium Oxalate Crystal Occasional H (None) /hpf Urine Mucus Moderate H (None) /hpf Disposition Clinical Impression: Constipation Disposition: HOME SELF-CARE Condition: Stable Instructions (If sedation given, give patient instructions): Constipation (ED) Additional Instructions: Please return to the Emergency Department if symptoms worsen or any other concerns. Trial of MiraLAX daily as discussed, trial of coffee in the morning, drink plenty of water. Follow-up with [employer] APPLICATOR or PCP if symptoms persist. Is patient prescribed a controlled substance at d/c from ED?: No Referrals: Darrell Hsu DO [Primary Care Provider] - 1-2 days
[2020-04-21 17:27] VITALS: BP 121/76; PULSE 80; RESP 18; TEMP 97.6
== END 2020-04-21 17:55 | disposition home or self-care (01) ==
LOC: EC 15:04
DX: O26.892 Other specified pregnancy related conditions, second trimester (principal); R14.0 Abdominal distension (gaseous); O99.612 Diseases of the digestive system complicating pregnancy, second trimester; K59.00 Constipation, unspecified; Z88.6 Allergy status to analgesic agent; Z3A.14 14 weeks gestation of pregnancy
CPT/HCPCS: 99284; 96374; 96361; 36415; 80053; 83605; 85025; 81001; 76700; 76815; J2405

== ENCOUNTER 2021-07-18 20:26 | Inpatient (IN) | payer BC ==
[2021-07-18] MEDS ORDERED: MORPHINE SULFATE 4 MG/ML SYRINGE IV STA (23:09)
[2021-07-18] MEDS ORDERED: ONDANSETRON 4 MG/2 ML VIAL IVP STA (23:09)
[2021-07-18] MEDS ORDERED: SODIUM CHLORIDE 0.9% 1,000 ML IV ONE (23:09)
[2021-07-18] MEDS ORDERED: VANCOMYCIN 1,000 MG in SODIUM CHLORIDE 0.9% 250 ML IVPB STA (23:11)
--- NOTE | 2021-07-18 23:16 | ED ---
Skin/Abscess/FB HPI - General Chief complaint: Skin/Abscess/Foreign Body Stated complaint: Facial Swelling, Abscess Time Seen by Provider: 07/18/21 23:00 Source: patient, RN notes reviewed Mode of arrival: ambulatory - History of Present Illness Initial comments: This is a pleasant 41-year-old female who presents from complaining of an abscess to her left forehead. Patient states she went to [facility] yesterday and had the abscess aspirated. She states she's been taking cephalexin and Bactrim. Patient states despite taking these medications the sy mptoms have worsened. Patient now has erythema spreading around her left eye and onto her infraorbital area on the left. Patient states that the abscess sac itself reining in the waiting room. Patient does have a history of similar symptomology in the past and had to be treated with vancomycin. Patient does not definitively state that she has a history of MRSA. No immunosuppression. Denies chance of . Denies any known fever. No headache, no fever or chills, no changes in vision or hearing, no sore throat or difficulty with speech, no neck pain, no chest pain or shortness of breath, no abdominal pain, no nausea or vomiting, no changes in urination or bowel movements, no numbness or tingling, no extremity pain - Related Data Home Medications Medication Instructions Recorded Confirmed Acetaminophen Tab [Tylenol Tab] 1,000 mg PO Q6HR PRN 04/21/20 04/21/20 Docusate [Colace] 100 mg PO DAILY 04/21/20 04/21/20 Glycerin Adult Suppository 1 suppositor RECTAL DAILY PRN 04/21/20 04/21/20 Magnesium Hydroxide [Milk of 2,400 mg PO DAILY PRN 04/21/20 04/21/20 Magnesia] Ondansetron [Zofran] 8 mg PO Q8H PRN 04/21/20 04/21/20 Xmg-Iuph-Qayva Acid 1 cap PO DAILY 04/21/20 04/21/20 [-U Capsule (formulary)] Allergies Allergy/AdvReac Type Severity Reaction Status Date / Time ketorolac [From Toradol] AdvReac Swelling Verified 07/18/21 20:52 Review of Systems ROS Statement: Those systems with pertinent positive or pertinent negative responses have been documented in the HPI. ROS Other: All systems not noted in ROS Statement are negative. Past Medical History Additional Past Medical History / Comment(s): hypoglycemia, orthostatic hypotension History of Any Multi-Drug Resistant Organisms: None Reported Past Surgical History: Orthopedic Surgery, Tonsillectomy Additional Past Anesthesia/Blood Transfusion Reaction / Comment(s): NEVER HAD Past Psychological History: No Psychological Hx Reported Smoking Status: Never smoker Past Alcohol Use History: Occasional Past Drug Use History: None Reported - Past Family History Father History Unknown: Yes Family Medical History: Diabetes Mellitus, Hypertension Mother History Unknown: Yes Family Medical History: Cancer General Exam - General Exam Comments Initial Comments: Patient in moderate distress. Has a significant abscess with secondary cellulitis to the left facial area. Cranial nerves II through XII are intact. General appearance: alert, in no apparent distress Head exam: Present: atraumatic, normocephalic, normal inspection Eye exam: Present: normal appearance, PERRL, EOMI. Absent: scleral icterus, conjunctival injection, periorbital swelling ENT exam: Present: normal exam, normal oropharynx, mucous membranes dry, mucous membranes moist, TM's normal bilaterally, normal external ear exam Neck exam: Present: normal inspection, full ROM. Absent: tenderness, meningismus, lymphadenopathy Respiratory exam: Present: normal lung sounds bilaterally. Absent: respiratory distress, wheezes, rales, rhonchi, stridor Cardiovascular Exam: Present: normal rhythm, tachycardia, normal heart sounds. Absent: systolic murmur, diastolic murmur, rubs, gallop, clicks GI/Abdominal exam: Present: soft, normal bowel sounds. Absent: distended, tenderness, guarding, rebound, rigid Extremities exam: Present: normal inspection, full ROM, normal capillary refill. Absent: tenderness, pedal edema, joint swelling, calf tenderness Back exam: Present: normal inspection Neurological exam: Present: alert, oriented X3, CN II-XII intact Psychiatric exam: Present: normal affect, normal mood Skin exam: Present: warm, dry, intact, erythema (Patient has a 2 cm abscess left forehead draining purulent fluid. No erythema noted to the left periorbital and infraorbital area consistent with secondary cellulitis). Absent: rash Course Vital Signs 07/18/21 07/18/21 20:46 23:10 Temperature 99.1 F Pulse Rate 112 H 82 Respiratory 16 18 Rate Blood Pressure 148/96 140/96 O2 Sat by Pulse 98 99 Oximetry - Reevaluation(s) Reevaluation #1: 07/19/21 00:37 Medical record is reviewed Symptoms are improved here in the emergency department Patient is informed of results and questions answered Patient in no distress Reevaluation #2: 07/19/21 01:02 Medical record is reviewed Symptoms are improved here in the emergency department Patient is informed of results and questions answered Patient in no distress - Consultations Consultation #1: Case was discussed in detail with Dr. Kellogg at such admission of the patient. Medical Decision Making - Medical Decision Making Patient be admitted for facial abscess with secondary cellulitis, vancomycin ordered. Outpatient treatment failure with oral antibiotics. Patient will be admitted and placed on vancomycin. Consult placed to surgery. Case will be discussed with Dr. Kellogg. The case was discussed in detail with ED attending physician. Presentation, findings, treatment plan discussed in detail--Dr. Gutierres - Lab Data Result diagrams: 07/18/21 23:10 07/18/21 23:10 Lab Results 07/18/21 07/18/21 07/18/21 Range/Units 23:10 23:10 23:10 WBC 10.0 (3.8-10.6) k/uL RBC 5.33 (3.80-5.40) m/uL Hgb 15.5 (11.4-16.0) gm/dL Hct 46.5 H (34.0-46.0) % MCV 87.3 (80.0-100.0) fL MCH 29.2 (25.0-35.0) pg MCHC 33.4 (31.0-37.0) g/dL RDW 13.8 (11.5-15.5) % Plt Count 380 (150-450) k/uL MPV 7.1 Neutrophils % 75 % Lymphocytes % 18 % Monocytes % 4 % Eosinophils % 1 % Basophils % 0 % Neutrophils # 7.5 (1.3-7.7) k/uL Lymphocytes # 1.8 (1.0-4.8) k/uL Monocytes # 0.4 (0-1.0) k/uL Eosinophils # 0.1 (0-0.7) k/uL Basophils # 0.0 (0-0.2) k/uL Sodium 139 (137-145) mmol/L Potassium 4.0 (3.5-5.1) mmol/L Chloride 102 (98-107) mmol/L Carbon Dioxide 24 (22-30) mmol/L Anion Gap 13 mmol/L BUN 12 (7-17) mg/dL Creatinine 0.91 (0.52-1.04) mg/dL Est GFR (CKD-EPI)AfAm >90 (>60 ml/min/1.73 sqM) Est GFR (CKD-EPI)NonAf 80 (>60 ml/min/1.73 sqM) Glucose 96 (74-99) mg/dL Plasma Lactic Acid Karson 1.0 (0.7-2.0) mmol/L Calcium 9.3 (8.4-10.2) mg/dL Total Bilirubin 0.5 (0.2-1.3) mg/dL AST 23 (14-36) U/L ALT 12 (4-34) U/L Alkaline Phosphatase 98 (38-126) U/L C-Reactive Protein 3.8 H (<1.0) mg/dL Total Protein 8.7 H (6.3-8.2) g/dL Albumin 4.9 (3.5-5.0) g/dL Disposition Clinical Impression: Abscess of forehead, Facial cellulitis Disposition: ADMITTED IP TO THIS HOSP Condition: Stable Is patient prescribed a controlled substance at d/c from ED?: No Referrals: Darrell Hsu DO [Primary Care Provider] - 1-2 days Time of Disposition: 01:02
[2021-07-19 00:21] LABS: Basophils % (A) 0 %; Eosinophils # (A) 0.1 k/uL (0-0.7); Eosinophils % (A) 1 %; HCT 46.5 % (34.0-46.0); HGB 15.5 gm/dL (11.4-16.0); Lymphocytes # (A) 1.8 k/uL (1.0-4.8); Lymphocytes % (A) 18 %; MCH 29.2 pg (25.0-35.0); MCHC 33.4 g/dL (31.0-37.0); MCV 87.3 fL (80.0-100.0); Mean Platelet Volume 7.1; Monocytes # (A) 0.4 k/uL (0-1.0); Monocytes % (A) 4 %; Neutrophils # (A) 7.5 k/uL (1.3-7.7); Neutrophils % (A) 75 %; Platelet Count 380 k/uL (150-450); RBC 5.33 m/uL (3.80-5.40); RDW 13.8 % (11.5-15.5)
[2021-07-19 00:35] LABS: ALT 12 U/L (4-34); AST 23 U/L (14-36); African American GFR (CKD) >90 (>60 ml/min/1.73 sqM); Albumin 4.9 g/dL (3.5-5.0); Alkaline Phosphatase 98 U/L (38-126); Anion Gap 13 mmol/L; Blood Urea Nitrogen 12 mg/dL (7-17); C Reactive Protein 3.8 mg/dL (<1.0); Calcium 9.3 mg/dL (8.4-10.2); Carbon Dioxide 24 mmol/L (22-30); Chloride 102 mmol/L (98-107); Glucose 96 mg/dL (74-99); Non-African American GFR(CKD) 80 (>60 ml/min/1.73 sqM); Sodium 139 mmol/L (137-145); Total Bilirubin 0.5 mg/dL (0.2-1.3); Total Protein 8.7 g/dL (6.3-8.2)
[2021-07-19] MEDS ORDERED: ACETAMINOPHEN TAB 325 MG TAB PO PRN (01:03)
[2021-07-19] MEDS ORDERED: NALOXONE 0.4 MG/ML 1 ML VIAL IV PRN (01:03)
[2021-07-19] MEDS ORDERED: MORPHINE SULFATE 4 MG/ML SYRINGE IV PRN (01:03)
[2021-07-19] MEDS ORDERED: VANCOMYCIN IV PER PHARMACY 1 EACH MISC MISCELLANE PRN (01:07)
[2021-07-19] MEDS: SODIUM CHLORIDE 0.9% 1,000 ML IV SCH ×3 (01:21→18:15)
[2021-07-19] MEDS ORDERED: diphenhydrAMINE 50 MG/ML 1 ML VIAL IVP STA (01:26)
[2021-07-19 02:05] LABS: Erythrocyte Sedimentation Rate 10 mm/hr (0-20)
[2021-07-19] MEDS ORDERED: HYDROmorphone 0.5 MG/0.5 ML SYRINGE IVP STA (02:44)
[2021-07-19] MEDS ORDERED: diphenhydrAMINE 50 MG/ML 1 ML VIAL IVP PRN (08:16)
[2021-07-19] MEDS: VANCOMYCIN 1,000 MG in SODIUM CHLORIDE 0.9% 250 ML IVPB SCH ×2 (08:26→16:44)
[2021-07-19] MEDS: HYDROmorphone 1 MG/ML 1 ML SYRINGE IVP PRN ×4 (08:30→21:19)
[2021-07-19] MEDS: VENLAFAXINE HCL ER 75 MG CAP PO SCH (09:02)
--- NOTE | 2021-07-19 10:00 | CT ---
EXAMINATION TYPE: CT brain wo con DATE OF EXAM: 07/19/2021 COMPARISON: None available HISTORY: non-healing wound to left forehead CT DLP: 1121 mGycm Automated exposure control for dose reduction was used. TECHNIQUE: CT scan of the brain is performed without IV contrast administration. FINDINGS: Focal soft tissue swelling with skin thickening is seen in the left frontal scalp with possible absce ss/collection measuring 2.4 cm. Associated diffuse subcutaneous edema and soft tissue swelling extend ing along the left side of the upper head into the left periorbital region and left upper face. No de finite soft tissue gas or calcification. Intact underlying bone. No acute intracranial hemorrhage. No gross acute cortical infarct. No midline shift, herniation or ve ntriculomegaly. Unremarkable dimas-white matter differentiation, basal cisterns, sella and CP angles. No gross space-occupying lesion, vasogenic edema or mass effect. Unremarkable orbits. Clear visualized paranasal sinuses and mastoid air cells. Unremarkable calvarial bones. IMPRESSION: Suspected left frontal scalp abscess/collection with acute inflammatory changes involving the left si de of the upper scalp and left side of the face as described above. Cellulitis cannot be excluded. No soft tissue gas or calcification. Grossly unremarkable underlying bone.
--- NOTE | 2021-07-19 11:39 | P.GSCN ---
History of Present Illness Consult date: 07/19/21 History of present illness: CHIEF COMPLAINT: Forehead abscess with facial swelling HISTORY OF PRESENT ILLNESS: This is a 41-year-old female who presented to the hospital with complaints of a left sided forehead abscess. Patient reports that the abscess started about a week ago. Possibly related to a ingrown hair or blocked hair follicle. Patient reports that it became like a pimple. She was able to pop and expresses some drainage. She was started on antibiotics outpatient in the form of Bactrim and then Keflex was added as well. Patient reports over the last 3 days the facial swelling has gotten worse. Patient's left side of her face is very swollen her eyes swollen shut. She is able to open the eye. She has had very minimal drainage from the abscess itself and its like a serosanguineous drainage. She went to her district yesterday and had a small amount of fluid aspirated. But even with the addition of second antibiotic she had no improvement. Therefore she came into the hospital for further evaluation. Patient reports that she's had these abscesses before. She denies history of MRSA but did require Vanco in the past. She denies any hi story of diabetes. Denies any fever chills or sweats. Patient seen and examined with Dr. duron PAST MEDICAL HISTORY: See list. PAST SURGICAL HISTORY: See list. MEDICATIONS: See list. ALLERGIES: See list. SOCIAL HISTORY: No illicit drug use. REVIEW OF SYSTEMS: CONSTITUTIONAL: Denies fever or chills. HEENT: Denies blurred vision, vision changes, or eye pain. Denies hemoptysis CARDIOVASCULAR: Denies chest pain or pressure. RESPIRATORY: No shortness of breath. GASTROINTESTINAL: See HPI for pertinent findings HEMATOLOGIC: Denies bleeding disorders. GENITOURINARY: Denies any blood in urine or increased urinary frequency. SKIN: Denies pruitis. Denies rash. PHYSICAL EXAM: VITAL SIGNS: Reviewed GENERAL: Well-developed in no acute distress. HEENT: Patient has a 2 cm abscess on the left forehead near the scalp line. It is indurated and small amount of fluctuance. There is no drainage currently there is a scab noted. Patient has left-sided facial swelling from the forehead down to the chin and into the neck. The left eye is closed shut. Periorbital swelling. Tender with palpation around the abscess area. ABDOMEN: Soft. Nontender Nondistended. NEUROLOGIC: Alert and oriented. Cranial nerves II through XII grossly intact. LABORATORY DATA: WBC is 10 hemoglobin 15.5 platelets 380 sodium 139 potassium 4.0 creatinine 0.91 CRP3.8 IMAGING: computed tomography scan of brain suspected left frontal scalp abscess/collection measuring 2.4 cm with acute inflammatory changes involving the left side of the upper scalp and left-sided the face. No soft tissue gas or calcification. Grossly unremarkable underlying bone. Cellulitis cannot be excluded. ASSESSMENT: 1. Left forehead abscess PLAN: -No surgical intervention planned -Apply warm compress to area -Continue supportive care -Continue antibiotics -Agree with infectious disease consult Thank you for this consultation Physician Condenser Tube Tender note has been reviewed by physician. Signing provider agrees with the documented findings, assessment, and plan of care. Past Medical History Additional Past Medical History / Comment(s): 2020 L periorbital facial cellulitis, hypoglycemia, orthostatic hypotension History of Any Multi-Drug Resistant Organisms: None Reported Past Surgical History: Orthopedic Surgery, Tonsillectomy Additional Past Surgical History / Comment(s): 5 R knee surgeries/reconstruction R knee Past Anesthesia/Blood Transfusion Reactions: No Reported Reaction Additional Past Anesthesia/Blood Transfusion Reaction / Comm: NEVER HAD Smoking Status: Never smoker - Past Family History Father History Unknown: Yes Family Medical History: Diabetes Mellitus, Hypertension Additional Family Medical History / Comment(s): Father in his sleep. Mother History Unknown: Yes Family Medical History: Cancer Additional Family Medical History / Comment(s): Breast and ovarian cancer, mother is . Medications and Allergies Home Medications Medication Instructions Recorded Confirmed Type Venlafaxine HCl ER [Effexor Xr] 75 mg PO DAILY@1100 07/19/21 07/19/21 History Allergies Allergy/AdvReac Type Severity Reaction Status Date / Time ketorolac [From Toradol] AdvReac Swelling/pa Verified 07/19/21 06:54 in/headache Surgical - Exam Vital Signs Temp Pulse Resp BP Pulse Ox 99.1 F 112 H 16 148/96 98 07/18/21 20:46 07/18/21 20:46 07/18/21 20:46 07/18/21 20:46 07/18/21 20:46 Results - Labs 07/18/21 23:10 07/18/21 23:10 Abnormal Lab Results - Last 24 Hours (Table) 07/18/21 07/18/21 Range/Units 23:10 23:10 Hct 46.5 H (34.0-46.0) % C-Reactive Protein 3.8 H (<1.0) mg/dL Total Protein 8.7 H (6.3-8.2) g/dL Diabetes panel 07/18/21 Range/Units 23:10 Sodium 139 (137-145) mmol/L Potassium 4.0 (3.5-5.1) mmol/L Chloride 102 (98-107) mmol/L Carbon Dioxide 24 (22-30) mmol/L BUN 12 (7-17) mg/dL Creatinine 0.91 (0.52-1.04) mg/dL Glucose 96 (74-99) mg/dL Calcium 9.3 (8.4-10.2) mg/dL AST 23 (14-36) U/L ALT 12 (4-34) U/L Alkaline Phosphatase 98 (38-126) U/L Total Protein 8.7 H (6.3-8.2) g/dL Albumin 4.9 (3.5-5.0) g/dL Calcium panel 07/18/21 Range/Units 23:10 Calcium 9.3 (8.4-10.2) mg/dL Albumin 4.9 (3.5-5.0) g/dL Pituitary panel 07/18/21 Range/Units 23:10 Sodium 139 (137-145) mmol/L Potassium 4.0 (3.5-5.1) mmol/L Chloride 102 (98-107) mmol/L Carbon Dioxide 24 (22-30) mmol/L BUN 12 (7-17) mg/dL Creatinine 0.91 (0.52-1.04) mg/dL Glucose 96 (74-99) mg/dL Calcium 9.3 (8.4-10.2) mg/dL Adrenal panel 07/18/21 Range/Units 23:10 Sodium 139 (137-145) mmol/L Potassium 4.0 (3.5-5.1) mmol/L Chloride 102 (98-107) mmol/L Carbon Dioxide 24 (22-30) mmol/L BUN 12 (7-17) mg/dL Creatinine 0.91 (0.52-1.04) mg/dL Glucose 96 (74-99) mg/dL Calcium 9.3 (8.4-10.2) mg/dL Total Bilirubin 0.5 (0.2-1.3) mg/dL AST 23 (14-36) U/L ALT 12 (4-34) U/L Alkaline Phosphatase 98 (38-126) U/L Total Protein 8.7 H (6.3-8.2) g/dL Albumin 4.9 (3.5-5.0) g/dL
[2021-07-19] MEDS ORDERED: VANCOMYCIN 1,000 MG in SODIUM CHLORIDE 0.9% 250 ML IVPB SCH (12:00)
[2021-07-19] MEDS ORDERED: AMPICILLIN-SULBACTAM 3 GM in SODIUM CHLORIDE 0.9% 100 ML IVPB SCH (19:45)
[2021-07-19] MEDS: ONDANSETRON 4 MG/2 ML VIAL IVP PRN (21:19)
--- NOTE | 2021-07-19 21:38 | HP ---
HISTORY AND PHYSICAL This 41-year-old white female came into hospital with left-sided forehead abscess that started a week ago. She apparently excised and drained it herself with her fingers. She has also ingrown hair and a blocked hair follicle. She had increased swelling and redness going down her face. She failed Bactrim. Keflex was added and did not work. Due to worsening facial pain and swelling down to her eyes, she came to the hospital. Her eye was swollen shut, but now she is opening her eye a little bit more than yesterday. She has some very minimal drainage around her eye; looks more like urticaria with some mild redness. She came to the hospital due to worsening. She has a history of MRSA with vancomycin in the past. Apparently had a reaction to morphine in the ER and possibly had some swelling from that. Past medical history: See list. Surgical history: See list. Medications: See list. Allergies: See list. Fourteen-point review of systems otherwise is negative. No fever or chills. No headaches. PHYSICAL EXAMINATION: Vital signs are stable. Afebrile. Cardiovascular S1, S2. Lungs clear. GI soft. Hematology negative Homans. Integument: Left forehead near scalp line indurated, small amount of fluctuance with a scab area about a centimeter wide by a centimeter in height. Left eye is open about 25%. Some mild swelling around the eye. She has some periorbital swelling, some mild tenderness. Cranial nerves are intact. White count is 10, hemoglobin 15.5, sodium 139, potassium 4, creatinine 0.9. CRP is 3.8. CT scan of the brain: Suspected left frontal scalp abscess collection, 2.4 cm. No soft tissue or gas or calcium. Cellulitis cannot be excluded. She has for sure periorbital cellulitis of left forehead, abscess. Warm compresses. Continue with broad-spectrum antibiotics. Wait for Infectious Disease. MMODL / IJN: [id number] /
[2021-07-19] MEDS: AMPICILLIN-SULBACTAM 3 GM in SODIUM CHLORIDE 0.9% 100 ML IVPB SCH (22:09)
--- NOTE | 2021-07-19 23:50 | P.CONS ---
History of Present Illness - Reason for Consult Consult date: 07/19/21 Forehead abscess Requesting physician: Calixto Kellogg - Chief Complaint Pain and swelling to the left side of the forehead and face x few days - History of Present Illness Patient is a 41-year female with a past medical history significant for recurrent skin and soft tissue infection presenting to the ER for evaluation of left forehead area of swelling and redness for the patient apparently was evaluated [facility] the day before presentation to the hospital the area was aspirated and the patient was discharged on Bactrim and Keflex patient mention she did have worsening of the swelling redness despite being on oral antibiotics for the patient presented to [facility] ER patient been complaining of pain to the forehead area more of a throbbing about 8 out of 10 no radiation with associated swelling and redness but no foul-smelling drainage, on arrival to the ER patient was afebrile and no fever have been care subsequently did have a normal white count kidney function was normal elevated CRP patient did have cultures obtained which are currently pending CT of the brain suspected left frontal scalp abscess collection with acute inflammatory changes involving the left side of the upper scalp General surgery has been consulted for drainage patient was started on vancomycin infectious disease was consulted for further management of antibiotic therapy Review of Systems Positive point has been mentioned in the HPI rest of the systems are negative Past Medical History Additional Past Medical History / Comment(s): 2020 L periorbital facial cellulitis, hypoglycemia, orthostatic hypotension History of Any Multi-Drug Resistant Organisms: None Reported Past Surgical History: Orthopedic Surgery, Tonsillectomy Additional Past Surgical History / Comment(s): 5 R knee surgeries/reconstruction R knee Past Anesthesia/Blood Transfusion Reactions: No Reported Reaction Additional Past Anesthesia/Blood Transfusion Reaction / Comm: NEVER HAD Smoking Status: Never smoker - Past Family History Father History Unknown: Yes Family Medical History: Diabetes Mellitus, Hypertension Additional Family Medical History / Comment(s): Father in his sleep. Mother History Unknown: Yes Family Medical History: Cancer Additional Family Medical History / Comment(s): Breast and ovarian cancer, mother is . Medications and Allergies Home Medications Medication Instructions Recorded Confirmed Type Venlafaxine HCl ER [Effexor Xr] 75 mg PO DAILY@1100 07/19/21 07/19/21 History Allergies Allergy/AdvReac Type Severity Reaction Status Date / Time ketorolac [From Toradol] AdvReac Swelling/pa Verified 07/19/21 06:54 in/headache Physical Exam Vitals: Vital Signs Temp Pulse Pulse Resp BP BP Pulse Ox 07/19/21 12:08 98.1 F 63 16 112/69 97 07/19/21 07:40 98.2 F 68 16 122/71 98 07/19/21 06:54 71 18 103/57 95 07/19/21 05:03 69 18 120/77 95 07/19/21 04:00 71 18 102/55 96 07/19/21 01:00 63 18 124/88 98 07/18/21 23:10 82 18 140/96 99 07/18/21 20:46 99.1 F 112 H 16 148/96 98 Intake and Output 07/18/21 07/19/21 07/19/21 22:59 06:59 14:59 Other: Weight 52.163 kg 52.163 kg GENERAL DESCRIPTION: Middle-aged female lying in bed, no distress. No tachypnea or accessory muscle of respiration use. HEENT: Shows Pallor , no scleral icterus. Oral mucous membrane is dry. No pharyngeal erythema or thrush Left forehead did have an area of induration and swelling with some redness to the left side of the face NECK: Trachea central, no thyromegaly. LUNGS: Unlabored breathing. Clear to auscultation anteriorly. No wheeze or crackle. HEART: S1, S2, regular rate and rhythm. No loud murmur ABDOMEN: Soft, no tenderness , guarding or rigidity, no organomegaly EXTREMITIES: No edema of feet. SKIN: No rash, no masses palpable. NEUROLOGICAL: The patient is awake, alert, oriented x3, mood and affect normal. Results CBC & Chem 7: 07/18/21 23:10 07/18/21 23:10 Labs: Abnormal Lab Results - Last 24 Hours (Table) 07/18/21 07/18/21 Range/Units 23:10 23:10 Hct 46.5 H (34.0-46.0) % C-Reactive Protein 3.8 H (<1.0) mg/dL Total Protein 8.7 H (6.3-8.2) g/dL Microbiology - Last 24 Hours (Table) 07/18/21 23:50 Wound Culture - Preliminary Other - Other Assessment and Plan (1) Abscess of forehead Current Visit: Yes Status: Acute Code(s): L02.01 - CUTANEOUS ABSCESS OF FACE SNOMED Code(s): 25967277 (2) Facial cellulitis Current Visit: Yes Status: Acute Code(s): L03.211 - CELLULITIS OF FACE SNOMED Code(s): 795780737 Plan: 1patient presented to hospital with left forehead abscess with secondary cellulitis involving the left side of the face in this patient who did have history of recurrence consulted infection high clinical suspicious for staphylococcal infection possible MRSA. 2await surgical drainage and deep culture. 3vancomycin pharmacy to dose target trough of 15 while watching kidney function and vancomycin trough closely. We will follow on clinical condition and cultures to further adjust medication if needed Thank you for this consultation will follow this patient along with you Time with Patient: Greater than 30
[2021-07-20] MEDS: VANCOMYCIN 1,000 MG in SODIUM CHLORIDE 0.9% 250 ML IVPB SCH ×4 (00:48→23:24)
[2021-07-20] MEDS: HYDROmorphone 1 MG/ML 1 ML SYRINGE IVP PRN ×6 (00:49→23:23)
[2021-07-20] MEDS: AMPICILLIN-SULBACTAM 3 GM in SODIUM CHLORIDE 0.9% 100 ML IVPB SCH ×3 (04:44→21:14)
[2021-07-20] MEDS ORDERED: VANCOMYCIN TROUGH DUE 1 EACH MISC MISCELLANE ONE (07:00)
[2021-07-20 07:02] LABS: African American GFR (CKD) >90 (>60 ml/min/1.73 sqM); Non-African American GFR(CKD) >90 (>60 ml/min/1.73 sqM)
[2021-07-20 09:15] LABS: Basophils # (A) 0.01 X 10*3/uL (0.00-0.10); Basophils % (A) 0.2 %; Eosinophils # (A) 0.18 X 10*3/uL (0.04-0.35); Eosinophils % (A) 3.3 %; HCT 38.6 % (37.2-46.3); HGB 12.1 g/dL (12.0-15.0); Immature Grans, Automated 0.4 %; Lymphocytes # (A) 1.57 X 10*3/uL (0.90-5.00); MCH 28.3 pg (27.0-32.0); MCHC 31.3 g/dL (32.0-37.0); MCV 90.4 fL (80.0-97.0); Mean Platelet Volume 9.6 fL (9.5-12.2); Monocytes % (A) 9.2 %; NRBC Per 100 WBC 0 /100 WBCS (0.0-0.0); Neutrophils # (A) 3.14 X 10*3/uL (1.80-7.70); Neutrophils % (A) 57.9 %; Platelet Count 306 X 10*3/uL (140-440); RBC 4.27 X 10*6/uL (4.10-5.20); RDW 13.4 % (11.5-14.5); WBC 5.42 X 10*3/uL (4.50-10.00)
[2021-07-20] MEDS: SODIUM CHLORIDE 0.9% 1,000 ML IV SCH ×4 (10:22→21:17)
[2021-07-20] MEDS: VENLAFAXINE HCL ER 75 MG CAP PO SCH (11:23)
[2021-07-20] MEDS: DOCUSATE 100 MG CAP PO SCH ×2 (13:35→21:13)
--- NOTE | 2021-07-20 14:57 | P.PN ---
Subjective Progress Note Date: 07/20/21 CHIEF COMPLAINT: Left forearm abscess with facial cellulitis HISTORY OF PRESENT ILLNESS: Patient has had improvement in the swelling and erythema on the left side of the face. She is able to open her eye. She's had some drainage from the abscess on her forehead. She reports some improvement in her pain. She is currently on antibiotics. Followed by infectious disease. Afebrile. WBC is 5.4 HGB 12.1 wound culture growing presumptive staph aureus Patient seen and examined with Dr. duron PHYSICAL EXAM: VITAL SIGNS: Reviewed. GENERAL: Well-developed in no acute distress. HEENT: Patient has decrease in the erythema and swelling on the left side of her face. She is able to open her eye. drainage from the left forehead abscess. ABDOMEN: Soft. Nondistended. Nontender. NEUROLOGIC: Alert and oriented. Cranial nerves II through XII grossly intact. ASSESSMENT: 1. Left forehead abscess with facial cellulitis showing improvement PLAN: -No surgical intervention planned -Continue antibiotics per ID -Continue supportive care -Continue warm compresses -Patient can shower Physician Craps Manager note has been reviewed by physician. Signing provider agrees with the documented findings, assessment, and plan of care. Objective - Vital Signs Vital signs: Vital Signs Temp 98.4 F 07/20/21 12:19 Pulse 70 07/20/21 12:19 Resp 15 07/20/21 12:19 BP 122/72 07/20/21 12:19 Pulse Ox 98 07/20/21 12:19 Intake & Output 07/19/21 07/20/21 07/20/21 18:59 06:59 18:59 Intake Total 2300 Balance 2300 Weight 52.163 kg Intake: Intake, IV Titration 1500 Amount Sodium Chloride 0.9% 1, 1500 000 ml @ 130 mls/hr IV . Q7H42M [facility] Rx#:[id number] Oral 800 Other: # Voids 4 - Labs CBC & Chem 7: 07/20/21 06:23 07/20/21 06:23 Labs: Abnormal Lab Results - Last 24 Hours (Table) 07/20/21 Range/Units 06:23 MCHC 31.3 L (32.0-37.0) g/dL Microbiology - Last 24 Hours (Table) 07/18/21 23:50 Gram Stain - Preliminary Other - Other Wound Culture - Preliminary Presumptive Staph aureus 07/18/21 23:12 Blood Culture - Preliminary Blood No Growth after 24 hours 07/18/21 22:58 Blood Culture - Preliminary Blood No Growth after 24 hours
[2021-07-20] MEDS: ONDANSETRON 4 MG/2 ML VIAL IVP PRN (18:10)
[2021-07-20 21:12] VITALS: TEMP 98.2
--- NOTE | 2021-07-20 21:14 | P.PN ---
Subjective Progress Note Date: 07/20/21 Principal diagnosis: Left forehead abscess and facial cellulitis Patient is a 41-year-old female presenting to the hospital with left edie abscess and cellulitis of the left facial area, CT suspicious for small abscess surgery following the patient. On today's evaluation that is 07/20/2021, the patient denies having any fever and chills, the patient pain discomfort to the forehead and facial area has decreased in intensity, the patient denies having any chest pain or shortness of breath or cough no nausea no vomiting no abdominal pain no diarrhea Objective - Vital Signs Vital signs: Vital Signs Temp 98.4 F 07/20/21 12:19 Pulse 70 07/20/21 12:19 Resp 15 07/20/21 12:19 BP 122/72 07/20/21 12:19 Pulse Ox 98 07/20/21 12:19 Intake & Output 07/19/21 07/20/21 07/20/21 18:59 06:59 18:59 Intake Total 2300 Balance 2300 Weight 52.163 kg Intake: Intake, IV Titration 1500 Amount Sodium Chloride 0.9% 1, 1500 000 ml @ 130 mls/hr IV . Q7H42M [facility] Rx#:[id number] Oral 800 Other: # Voids 4 - Exam GENERAL DESCRIPTION: Middle-age female lying in bed in no distress HEENT : Left edie swelling slightly decreased in the facial redness has decreased RESPIRATORY SYSTEM: Unlabored breathing , decreased breath sounds at bases HEART: S1 S2 regular rate and rhythm , ABDOMEN: Soft , no tenderness EXTREMITIES: No edema feet - Labs CBC & Chem 7: 07/20/21 06:23 07/20/21 06:23 Labs: Abnormal Lab Results - Last 24 Hours (Table) 07/20/21 Range/Units 06:23 MCHC 31.3 L (32.0-37.0) g/dL Microbiology - Last 24 Hours (Table) 07/18/21 23:50 Gram Stain - Preliminary Other - Other Wound Culture - Preliminary Presumptive Staph aureus 07/18/21 23:12 Blood Culture - Preliminary Blood No Growth after 24 hours 07/18/21 22:58 Blood Culture - Preliminary Blood No Growth after 24 hours Assessment and Plan (1) Abscess of forehead Current Visit: Yes Status: Acute Code(s): L02.01 - CUTANEOUS ABSCESS OF FACE SNOMED Code(s): 23154852 (2) Facial cellulitis Current Visit: Yes Status: Acute Code(s): L03.211 - CELLULITIS OF FACE SNOMED Code(s): 533593035 Plan: 1patient presented to hospital with left forehead abscess with secondary cellulitis involving the left side of the face in this patient who did have history of recurrence consulted infection high clinical suspicious for staphylococcal infection possible MRSA. 2patient blood culture has been negative local culture showing present for staph aureus with sensitivities pending 3patient to continue with vancomycin pharmacy to dose target trough of 15 while watching kidney function and vancomycin trough closely. Time with Patient: Less than 30
[2021-07-21] MEDS: AMPICILLIN-SULBACTAM 3 GM in SODIUM CHLORIDE 0.9% 100 ML IVPB SCH ×2 (05:45→14:02)
[2021-07-21] MEDS: HYDROmorphone 1 MG/ML 1 ML SYRINGE IVP PRN (07:53)
[2021-07-21] MEDS: DOCUSATE 100 MG CAP PO SCH (07:54)
[2021-07-21] MEDS: VANCOMYCIN 1,000 MG in SODIUM CHLORIDE 0.9% 250 ML IVPB SCH (07:54)
[2021-07-21 08:23] LABS: African American GFR (CKD) >90 (>60 ml/min/1.73 sqM); Non-African American GFR(CKD) >90 (>60 ml/min/1.73 sqM)
--- NOTE | 2021-07-21 10:26 | P.PN ---
Progress Note - Text Progress Note Date: 07/21/21 Patient feels better today. Her left periorbital swelling and erythema have improved significantly. There is very minimal cellulitis and afforded. Status post fascial cellulitis and inflammation. This is improving. Patient most likely discharge home tomorrow.
[2021-07-21] MEDS: VENLAFAXINE HCL ER 75 MG CAP PO SCH (12:17)
[2021-07-21] MEDS: SODIUM CHLORIDE 0.9% 1,000 ML IV SCH (12:17)
[2021-07-21 13:28] VITALS: BP 109/72; PULSE 66; RESP 15
--- NOTE | 2021-07-21 20:01 | DS ---
DISCHARGE SUMMARY FINAL DIAGNOSES: 1. Left facial infection with MSSA with failure of outpatient treatment. 2. History of anxiety. 3. History of OCD. DISCHARGE DISPOSITION: The patient being discharged in stable condition with guarded prognosis after being cleared by infectious disease. HISTORY OF PRESENT ILLNESS: This 41-year-old woman with a past medical history of significant left facial infection, MSSA grown from the culture. Treated with antibiotics, improved significantly. Patient is keen on going home. evaluated the patient. Recommended discharge. EXAM: Vitals stable. Cardiovascular: S1, S2. Abdomen soft. Nervous system: No focal deficits. DISCHARGE ADVICE AND MEDICATIONS: Refer to the discharge reconciliation sheet. Dr. Garcia has recommended Keflex 500 mg p.o. q.6h for 10 days and follow with primary physician and Dr. Garcia. MMODL / IJN: [id number] / MTDD
== END 2021-07-21 14:07 | disposition home or self-care (01) | DRG 603 ==
LOC: EC 20:26 → 4SSUR 07-19 01:21 → 5NMEDONC 07-19 03:52
PROVIDERS: ADMIT Family Medicine; ATTEND Family Medicine
DX: L02.01 Cutaneous abscess of face (principal); L03.211 Cellulitis of face; L03.213 Periorbital cellulitis; L02.811 Cutaneous abscess of head [any part, except face]; F42.9 Obsessive-compulsive disorder, unspecified; B95.61 Methicillin susceptible Staphylococcus aureus infection as the cause of diseases classified elsewhere; I95.1 Orthostatic hypotension; L50.9 Urticaria, unspecified; L73.1 Pseudofolliculitis barbae; Z28.311 Partially vaccinated for COVID-19; Z79.899 Other long term (current) drug therapy; Z80.41 Family history of malignant neoplasm of ovary; Z80.3 Family history of malignant neoplasm of breast; Z82.49 Family history of ischemic heart disease and other diseases of the circulatory system; Z83.3 Family history of diabetes mellitus; Z88.8 Allergy status to other drugs, medicaments and biological substances
CPT/HCPCS: 36415; 70450; 80053; 80202; 81025; 82565; 83605; 85025; 85652; 86140; 87040; 87070; 87077; 87186; 87205; 96361; 96365; 96366; 96375; 99285